=== PATIENT | female | born 1995 | race Caucasian/White ===

== ENCOUNTER 2019-06-30 17:30 | Outpatient (CLI) | payer MEDICAID, SELFPAY ==
[2019-06-30 17:45] VITALS: BMI 30.8
[2019-06-30 17:46] VITALS: BP 152/90; PULSE 97
[2019-06-30 17:50] VITALS: RESP 18; TEMP 36.8
[2019-06-30 18:01] VITALS: BP 154/97; PULSE 96
[2019-06-30 18:03] VITALS: BP 145/88; PULSE 86
[2019-06-30 18:35] VITALS: BP 145/88; PULSE 86; RESP 18; TEMP 36.8
== END 2019-06-30 18:20 | disposition home or self-care (01) ==
LOC: OPOB 17:38 → OBGYN 17:40 → OPOB 07-03 14:20
PROVIDERS: Visit Provider Family Medicine
DX: O26.899 Other specified pregnancy related conditions, unspecified trimester (principal); Z3A.00 Weeks of gestation of pregnancy not specified; Z91.81 History of falling
CPT/HCPCS: 59025; 99211

== ENCOUNTER 2019-07-05 22:19 | Inpatient (IN) | payer MEDICAID, SELFPAY ==
[2019-07-05] VITALS (13 sets, daily range): BP systolic 0–149; BP diastolic 0–93; PULSE 82–91; TEMP 36.8; BMI 30.8
[2019-07-05 21:36] LABS: Add Urine Microscopic? NO
[2019-07-05 21:38] LABS: Basophils % 0.2 %; Eosinophils % 0.3 %; Hematocrit 32.2 % (37.0-47.0); Hemoglobin 10.3 g/dL (11.5-15.3); Lymphocytes # 1.9 10^3/uL (0.8-4.8); Lymphocytes % 21.7 %; Mean Corpuscular Hemoglobin 26.4 pg (28.0-34.0); Mean Corpuscular Volume 82.6 fL (81-99); Mean Platelet Volume 11.8 fL (7.4-10.4); Monocytes # 0.8 10^3/uL (0.2-0.9); Neutrophils # 5.9 10^3/uL (1.8-7.7); Neutrophils % 68.2 %; Nucleated Red Blood Cells % 0 %; Platelet Count 216 10^3/cmm (130-400); Red Cell Distribution Width 13.6 % (12.1-15.1); White Blood Count 8.6 10^3/uL (4.0-10.0)
[2019-07-05 21:44] LABS: Bilirubin Urine Neg (NEGATIVE); Blood Urine Neg (Negative); Glucose Urine UA Norm (Normal); Ketones Urine 1+ (Negative); Leukocyte Esterase Urine Negative (Negative); Nitrate Urine Negative (Negative); Protein Urine Neg (Negative); Specific Gravity, Urine 1.005 (1.005-1.030); Urine Appearance Clear (CLEAR); Urine Color Straw (Yellow); Urobilinogen Urine Norm (Negative); pH Urine 7 (5-7)
[2019-07-05 21:53] LABS: Alanine Aminotransferase 11 U/L (0-33); Albumin Level 3.8 g/dL (3.5-5.2); Alkaline Phosphatase 119 IU/L (35-105); Aspartate Amino Transferase 18 U/L (0-32); Blood Urea Nitrogen 11 mg/dL (6-20); Calcium 10.2 mg/dL (8.5-10.5); Carbon Dioxide 23 mmol/L (22-29); Chloride 100 mmol/L (98-107); Globulin 2.4 g/dL (1.3-4.6); Glucose 85 mg/dL (65-115); Osmolality Calculated 279 mOsm/kg (285-295); Sodium 137 mmol/L (136-145); Total Bilirubin 0.3 mg/dL (0.15-1.2); Total Protein 6.2 g/dL (6.6-8.7); Uric Acid 6.3 mg/dL (2.4-5.7)
[2019-07-05 21:56] LABS: Urine Creatinine 38 mg/dL (28-217); Urine Protein Random 15 mg/dL
[2019-07-05 22:07] LABS: UPRO/UCREAT Ratio 0.39 mg/mg CR
[2019-07-05] MEDS: acetaminophen 325 mg Tablet 650 MG PO (22:52)
[2019-07-05] MEDS: lactated ringers 1,000 ML 999 ML IV (23:00)
[2019-07-05] MEDS: oxytocin 30 UNIT/500 ML BAG IV (23:25)
[2019-07-05] MEDS: dextrose 5%-lactated ringers 1,000 ML 125 ML IV (23:28)
[2019-07-06] VITALS (160 sets, daily range): BP systolic 0–158; BP diastolic 0–107; PULSE 60–110; RESP 16–18; TEMP 36.4–37.2; O2SAT 98–100
[2019-07-06] MEDS: alum-mag-hydroxide-sime 30 mL UDC PO (00:38)
--- NOTE | 2019-07-06 02:33 | PC.NURSE ---
RN escorts patient to [facility] for admission per physician order.
[2019-07-06] MEDS: dextrose 5%-lactated ringers 1,000 ML 125 ML IV ×2 (06:44→17:50)
[2019-07-06] MEDS: lactated ringers 1,000 ML 999 ML IV (08:32)
--- NOTE | 2019-07-06 08:50 | P.ANESUD_ITS ---
Pre-Anesthetic Update Pre-Anesthetic Assessment: Date of Surgery/Procedure: 07/06/19 Preop Loni gnosis: IUP Any changes to Pre-Anesthetic Assessment?: Yes Changes from Pre-Anesthetic Assessment: patients BP is elevated, states she had a fall last week and was told then that blood pressure was probably increased r/t anxiety. BP was elevated again on admission. patient has very small mouth opening Mp 3 Labs Last 48hrs: Laboratory Results - last 48 hr 07/05/19 07/05/19 07/05/19 21:23 21:23 21:26 WBC 8.6 RBC 3.90 L Hgb 10.3 L Hct 32.2 L MCV 82.6 MCH 26.4 L MCHC 32.0 RDW 13.6 Plt Count 216 MPV 11.8 H Neut % (Auto) 68.2 Lymph % (Auto) 21.7 [place] % (Auto) 9.0 Eos % (Auto) 0.3 Baso % (Auto) 0.2 Neut # (Auto) 5.9 Lymph # (Auto) 1.9 [place] # (Auto) 0.8 Eos # (Auto) 0.0 Baso # (Auto) 0.0 Nucleated RBC % (a uto) 0 Nucleated RBCs # 0.0 Sodium Potassium Chloride Carbon Dioxide Anion Gap BUN Creatinine GFR Calculation Glucose Calculated Osmolal ity Uric Acid Calcium Total Bilirubin AST ALT Alkaline Phosphata se Total Protein Albumin Globulin Urine Color Straw Urine Appearance Clear Urine pH 7 Ur Specific Gravit y 1.005 Urine Protein Neg Urine Glucose (UA) Norm Urine Ketones 1+ H Urine Blood Neg Urine Nitrate Negative Urine Bilirubin Neg Urine Urobilinogen Norm Ur Leukocyte Bita ase Negative U Random Total Pro tein 15 Urine Creatinine 38 Protein/Creatinin Ratio 0.39 07/05/19 21:26 WBC RBC Hgb Hct MCV MCH MCHC RDW Plt Count MPV Neut % (Auto) Lymph % (Auto) [place] % (Auto) Eos % (Auto) Baso % (Auto) Neut # (Auto) Lymph # (Auto) [place] # (Auto) Eos # (Auto) Baso # (Auto) Nucleated RBC % (a uto) Nucleated RBCs # Sodium 137 Potassium 4.0 Chloride 100 Carbon Dioxide 23 Anion Gap 18.0 BUN 11 Creatinine 0.6 GFR Calculation 125.0 Glucose 85 Calculated Osmolal ity 279 L Uric Acid 6.3 H Calcium 10.2 Total Bilirubin 0.3 AST 18 ALT 11 Alkaline Phosphata se 119 H Total Protein 6.2 L Albumin 3.8 Globulin 2.4 Urine Color Urine Appearance Urine pH Ur Specific Gravit y Urine Protein Urine Glucose (UA) Urine Ketones Urine Blood Urine Nitrate Urine Bilirubin Urine Urobilinogen Ur Leukocyte Bita ase U Random Total Pro tein Urine Creatinine Protein/Creatinin Ratio Vitals: Temperature 98.5 F 07/06/19 06:00 Temperature Source Oral 07/06/19 06:00 Pulse Rate 69 07/06/19 08:44 Respiratory Effort Non-Labored 07/05/19 23:14 Respiratory Depth Normal 07/05/19 23:14 Respiratory Patter n 07/05/19 23:14 Blood Pressure 137/93 07/06/19 08:44 Blood Pressure Lauren n 109 07/06/19 08:44 Pulse Oximetry 98 07/06/19 02:02 Oxygen Delivery Me thod 07/05/19 23:14 Exam: Pre-Anes Outpt Exam: alert, oriented x 3 and clear to auscultation bilaterally Cardiac Studies: No Data to Display
--- NOTE | 2019-07-06 09:29 | ANES.PROC ---
Anesthesia Procedures Procedure/Date: 07/06/19 labor epidural Epidural: Time Out Performed: Yes Consents Signed: Procedure Consent Consent: requested by attending/covering physician, from patient, risks and benefits reviewed and patient agrees to proceed Lumbar Level: L3-L4 Epidural position: sitting Epidural procedure: sterile prep of area, 1% lidocaine to numb the area, 18 g needle (L3-L4 interspace), neg for paresthesia, test dose given (5 cc), 0.2% Ropivacaine bolus ml (10 cc), placed PCEA, no systemic response, sterile dressing applied and 0.2% Ropiavacaine @ mls/hr (13 mls/hr) Additional Comments: DHARA at 8 cm, catheter threaded to 14 cm. vss See OBIX system. Patient denies feeling contractions at this time.
[2019-07-06] MEDS: ondansetron 2 mg/ML SDV 2 mL 4 MG IVP (10:08)
--- NOTE | 2019-07-06 13:27 | PC.NURSE ---
Dr. Mendoza at bedside at this time. SVE performed by Dr. Mendoza. loose 1 cm, AROM at 1308. Small to moderate amount of clear fluid noted. Pt placed in high fowlers position. Pt reports wanting her epidural turned down. Dr. Mendoza gave verbal order to turn epidural down to 10 mL/hr. Tamica Espinoza RN
--- NOTE | 2019-07-06 20:01 | P.PCNOB_ITS ---
Delivery Note: Date of delivery: July 06, 2019 Pre-delivery diagnoses: IUP at 37 weeks 4 days gestation Mild preeclampsia Post-delivery diagnoses: Same Procedure: Normal spontaneous vaginal delivery Op report anesthesia: Epidural Delivering Physician: Soo Mendoza MD Estimated blood loss (mL): 200 Findings: Vertex female infant weight 3415 g, Apgars 8 and 9 Pre-Delivery Course: The patient had routine care at [facility]. Her ROHIT 07/22/2019 by LMP and early u/s. There were no complications during the until a of admission. Patient called labor and delivery on the day of admission complaining of headache and elevated blood pressure. She was told to come in for evaluation in triage. Her blood pressure was found to be elevated at 157/90 repeat 151/94. She had home pressures mildly elevated as well. PIH labs were drawn and her AST ALT were within normal limits, platelets were within normal limits, protein creatinine ratio however was 0.39 supporting diagnosis of mild preeclampsia. Decision was made to keep patient and undergo induction. Her cervix was favorable at 1 cm 75% effaced soft and -3 station. She was started on Pitocin. She received an epidural for pain management. She had artificial rupture of membranes with clear fluid noted at approximately 6 hours prior to delivery. She was GBS negative. Delivery: The patient had a normal spontaneous vaginal delivery of a viable female infant weight 3415 g Apgars 8 and 9 over an intact perineum. The infant was suctioned at delivery and placed on the mother's chest. The cord was clamped and cut. The placenta was delivered grossly intact and normal to inspection. There were bilateral first-degree labial lacerations that were sutured for cosmesis. Mother and were doing well after delivery Coding Level of Care Code Acute Combination Presser for Meetag Brenda
[2019-07-06] MEDS: benzocaine-menthol 78 gm Canister 1 SPRAY TOPICAL (21:20)
[2019-07-06] MEDS: lanolin oint 7 gm 1 APPLIC TOPICAL (21:21)
[2019-07-07 01:15] VITALS: BP 133/88; PULSE 78; RESP 18; TEMP 36.4
[2019-07-07 03:30] VITALS: BP 104/61; PULSE 87; RESP 18
[2019-07-07 06:00] VITALS: BP 119/74; PULSE 80; RESP 14; TEMP 36.7; O2SAT 97
[2019-07-07 08:34] LABS: Hematocrit 28.5 % (37.0-47.0); Hemoglobin 8.9 g/dL (11.5-15.3); Mean Corpuscular HGB Conc 31.2 g/dL (30.0-36.0); Mean Corpuscular Hemoglobin 26.6 pg (28.0-34.0); Mean Corpuscular Volume 85.3 fL (81-99); Mean Platelet Volume 11.6 fL (7.4-10.4); Platelet Count 192 10^3/cmm (130-400); Red Blood Count 3.34 10^6/uL (4.1-5.3); Red Cell Distribution Width 13.7 % (12.1-15.1); White Blood Count 11.2 10^3/uL (4.0-10.0)
[2019-07-07] MEDS: docusate sodium 100 mg Capsule PO ×2 (09:19→17:56)
[2019-07-07] MEDS: prenatal vitamin Capsule 1 CAP PO (09:19)
[2019-07-07 09:30] VITALS: BP 136/87; PULSE 103; RESP 16; TEMP 36.4
--- NOTE | 2019-07-07 13:33 | PM.OBGYDC ---
Discharge Providers SMOKE CONTROL SUPERVISOR Date of Admission: 07/05/19 22:19 Date of Discharge: 07/07/19 Attending Provider at Admission: Soo Mendoza MD Attending Provider at Discharge: Soo Mendoza MD Diagnoses at Discharge Discharge Diagnosis (1) (normal spontaneous vaginal delivery): Status: Acute (2) Mild preeclampsia: Status: Acute Reason for Visit Reason for Visit: Reason For Visit: high bp Hospital Course Hospital Course: This is a 24-year-old G1 now P1 who presented to labor and delivery complaining of headache and elevated blood pressure. She was found to have mildly elevated blood pressures and a urine protein creatinine ratio of 0.39 so she was induced for mild preeclampsia. She had a normal spontaneous vaginal delivery of a viable female infant. Mother and infant did well after delivery. On day #1 she was ambulating, tolerating a regular diet, had normal blood pressures good urine output and was comfortable with discharge home Information Peripartum Data: Infant Delivery Method: Vaginal Physical Exam HENMT: COMMON NORMALS: normocephalic and head/scalp atraumatic HEAD & SCALP: normocephalic and atraumatic Eye: COMMON NORMALS: PERRL and EOMs intact bilaterally PUPIL: Yes PERRL Resp: COMMON NORMALS: normal respiratory effort Cardio: RATE: tachycardic HEART SOUNDS: no murmurs GI: COMMON NORMALS: normal to inspection, nondistended, normoactive bowel sounds, soft to palpation and non-tender PALPATION: Yes soft Extremity: GENERAL: No calf tenderness and Yes edema Urinary Catheter Management^: Schultz Latex: Cath Placed During This Visit: yes, but has since been removed by the nurse Reason for Continuing Indwelling Catheter: Other Urinary Catheter Date of Insertion: 07/06/19 Urinary Catheter Time of Insertion: 09:42 Date Urinary Catheter Removed: 07/06/19 Time Urinary Catheter Discontinued: 18:20 Discharge Data Data Completed and Pending: Labs from last 24 hours 07/07/19 07:50 WBC 11.2 H RBC 3.34 L Hgb 8.9 L Hct 28.5 L MCV 85.3 MCH 26.6 L MCHC 31.2 RDW 13.7 Plt Count 192 MPV 11.6 H Vitals: Last Vital Signs Temp 97.5 F L 07/07/19 09:30 Pulse 103 H 07/07/19 09:30 Resp 16 07/07/19 09:30 BP 136/87 07/07/19 09:30 Pulse Ox 97 07/07/19 06:00 Discharge Plan Discharge Patient Disposition: Home, Self-Care Condition: Stable Prescriptions: Continued ondansetron HCl [Zofran] 4 mg Tablet 4 mg PO Q6H PRN (Reason: Nausea) RF: 0 Vitamin 27 mg iron- 0.8 mg Tablet 1 tab PO DAILY RF: 0 Discharge Orders: Discharge Order (Routine); Ordered 07/07/19 Ordered By: Soo Mendoza Referrals: Soo Mendoza MD [Physician] - 08/03/19 1:00 pm Patient Instructions: Vaginal Delivery (DC), OB Discharge Report, OB Anesthesia Instructions, OB Food/Drug Interaction Guide, OB Home Care, OB Proud Parent Packet Discharge Attestations SMOKE CONTROL SUPERVISOR Time Spent in Discharge Care*: less than 30 min Coding Level of Care Code Acute Fur Trimming Machine Operator for Chg Fwd Diagnoses (normal spontaneous vaginal delivery) O80 Mild preeclampsia O14.00
[2019-07-07 15:00] VITALS: BP 144/78; PULSE 101; RESP 16; TEMP 36.6
--- NOTE | 2019-07-07 21:20 | PC.NURSE ---
Vitals reported to this nurse to chart for ALEXIA ISAAC. GORDON RN
== END 2019-07-07 21:10 | disposition home or self-care (01) | DRG 807 ==
LOC: OPOB 07-06 09:25 → OBGYN 07-06 09:25
PROVIDERS: Admitting Provider Family Medicine; Visit Provider Family Medicine
DX: O14.04 Mild to moderate pre-eclampsia, complicating childbirth (principal); Z37.0 Single live birth; Z3A.37 37 weeks gestation of pregnancy; O70.0 First degree perineal laceration during delivery
CPT/HCPCS: 12345; 36415; 51702; 59409; 80053; 81003; 82570; 84156; 84550; 85025; 85027; 96375; 99211; J2405; J2795

== ENCOUNTER 2020-06-17 04:40 | Emergency (ER) | payer BC, MEDICAID, SELFPAY ==
[2020-06-17 04:58] VITALS: BP 134/95; PULSE 81; RESP 16; TEMP 36.8; O2SAT 97; BMI 27.4
[2020-06-17 05:03] VITALS: BP 125/74; PULSE 78; RESP 16; O2SAT 100
[2020-06-17] MEDS: sodium chloride 0.9% 1,000 ML 999 ML IV (05:31)
[2020-06-17] MEDS: ondansetron 2 mg/ML SDV 2 mL 4 MG IVP (05:31)
[2020-06-17] MEDS: ketorolac 30 mg/mL INJ IVP (05:32)
[2020-06-17 05:33] VITALS: BP 125/78; PULSE 74; RESP 18; O2SAT 96
[2020-06-17 05:43] LABS: Basophils % 0.2 %; Eosinophils % 0.3 %; Hematocrit 41.6 % (37.0-47.0); Hemoglobin 13.8 g/dL (11.5-15.3); Lymphocytes # 1.2 10^3/uL (0.8-4.8); Mean Corpuscular HGB Conc 33.2 g/dL (30.0-36.0); Mean Corpuscular Hemoglobin 27.7 pg (28.0-34.0); Mean Corpuscular Volume 83.4 fL (81-99); Mean Platelet Volume 9.6 fL (7.4-10.4); Monocytes # 1.3 10^3/uL (0.2-0.9); Neutrophils # 3.51 10^3/uL (1.8-7.7); Neutrophils % 57.8 %; Nucleated Red Blood Cells % 0 %; Platelet Count 259 10^3/cmm (130-400); Red Blood Count 4.99 10^6/uL (4.1-5.3); Red Cell Distribution Width 12.7 % (12.1-15.1); White Blood Count 6.1 10^3/uL (4.0-10.0)
--- NOTE | 2020-06-17 06:00 | ED_ITS ---
Documented by User: John Watts DO 06/17/20 06:10 HPI - Nausea/Vomiting/Diarrhea General: Chief complaint: Nausea/Vomiting/Diarrhea Stated complaint: back pain, diarhea Time Seen by Provider: 06/17/20 04:57 History of Present Illness: HPI Narrative: 24-year-old female presenting with back pain, and diarrhea since Wednesday. She states she believes she had a fever yesterday. No blood in the stool. No vomiting. She has abdominal cramping. She does not believe she is , she is on control and took a test at home. She notes that her is sick with sinuses , and her daughter has a cold . They do not have GI symptoms. She denies any cough or congestion. MD elicited complaint: nausea, diarrhea and abdominal pain Pertinent past history: other Onset (ago): day(s) Description of vomiting: none Description of diarrhea: watery Associated nausea: Yes Associated abdominal pain: Yes Location of pain: Periumbilical and Suprapubic Radiation: diffuse Severity: moderate Quality: cramping, stabbing and aching Exacerbating factors: movement Relieving factors: none Associated symtoms: Reports nausea; Denies altered mental status, change in vision, chest pain, cough or headache(s) Review of Systems Const: Reports: fever(s); Denies: chills or body aches Eyes: Denies: change in vision or blurry vision Card: Denies: chest pain Resp: Denies: dyspnea, productive cough or non-productive cough GI: Reports: abdominal pain, nausea and GI cramping; Denies: vomiting Neuro: Denies: headache(s) [facility] ED PFSH: Social History (Updated 05/10/20 @ 10:54 by Melisa Bledsoe LPN, RT) Smoking and tobacco status: never smoked Second hand smoke exposure: No Alcohol intake: never Caregiver/support person: Yes Lives independently: Yes Household members: spouse and children Marital status: Current occupational status: employed Current occupation: [employer] History of recent travel: No Current gender identity: Female Physical Exam Const: EXAM LIMITATIONS: no altered mental status GENERAL APPEARANCE: well developed ORIENTATION/CONSCIOUSNESS: Yes oriented to person, Yes oriented to place and Yes oriented to time HENMT: COMMON NORMALS: normocephalic, external ears normal and Normal external nose present HEAD & SCALP: normocephalic FACE & SINUS: normal facial exam NOSE: Normal external nose present and No nasal discharge present EXTERNAL EAR: Yes external ears normal Eye: COMMON NORMALS: Equal, round and reactive pupils present, EOMs intact bilaterally and conjunctivae normal EYELID: eyelids normal CONJUNCTIVA: Yes conjunctivae normal PUPIL: Yes Equal, round and reactive pupils present Neck/C-Spine: GENERAL: No tracheal deviation Chest: COMMONS NORMALS: normal inspection of the chest CHEST: No tenderness Resp: COMMON NORMALS: clear to auscultation bilaterally EFFORT & INSPECTION: No tachypneic, No respiratory distress, No retractions, No uses accessory muscles and No tracheal deviation AUSCULTATION: clear to auscultation bilaterally, no rhonchi, no wheezes and lung sounds not diminished Cardio: COMMON NORMALS: regular rate and regular rhythm RATE: regular rate RHYTHM: regular rhythm HEART SOUNDS: no murmurs PERIPHERAL PULSES: radial pulses present GI: INSPECTION: No abdominal distension AUSCULTATION: No Hyperactive bowel sounds present and No Hypoactive bowel sounds present PALPATION: Yes Tenderness to palpation present (GI) (Suprapubic), No Guarding due to palpation present (GI) and No Rigid due to palpation PERCUSSION: no dullness to percussion and no tympanic to percussion : BLADDER/KIDNEY EXAM: Yes CVA tenderness (mild) bilateral Back/Pelvis: GENERAL BACK: Yes CVA tenderness (mild) Neuro: SENSORIUM/ORIENTATION: Yes oriented to person, Yes oriented to place and Yes oriented to time Psych: COMMON NORMALS: mental status grossly normal Skin: COMMON NORMALS: no rashes or lesions noted GENERAL SKIN EXAM: no rashes or lesions noted Course Vital Signs: Vital signs: Vital Signs Temperature 98.2 F 06/17/20 04:58 Pulse Rate 90 06/17/20 08:07 Respiratory Rate 16 06/17/20 08:07 Blood Pressure 120/72 06/17/20 08:07 Pulse Oximetry 97 06/17/20 08:07 MDM - Nausea/Vomiting/Diarrhea MDM Narrative: Medical decision making narrative: 24-year-old female with back pain, abdominal cramping, and diarrhea. There is questionable history of fever yesterday. Sick contacts in the family have upper respiratory symptoms. White blood cell count is 6.1. Other labs are pending. Patient will be checked out to Dr. Sanon at shift change. Lab Data: Labs: Lab Results 06/17/20 06/17/20 06/17/20 Range/Units 05:21 05:30 05:30 WBC 6.1 (4.0-10.0) 10^3/ uL RBC 4.99 (4.1-5.3) 10^6/u L Hgb 13.8 (11.5-15.3) g/dL Hct 41.6 (37.0-47.0) % MCV 83.4 (81-99) fL MCH 27.7 L (28.0-34.0) pg MCHC 33.2 (30.0-36.0) g/dL RDW 12.7 (12.1-15.1) % Plt Count 259 (130-400) 10^3/c mm MPV 9.6 (7.4-10.4) fL Neut % (Auto) 57.8 % Lymph % (Auto) 20.0 % [place] % (Auto) 21.0 % Eos % (Auto) 0.3 % Baso % (Auto) 0.2 % Neut # (Auto) 3.51 (1.8-7.7) 10^3/u L Lymph # (Auto) 1.2 (0.8-4.8) 10^3/u L [place] # (Auto) 1.3 H (0.2-0.9) 10^3/u L Eos # (Auto) 0.0 (0.0-0.8) 10^3/u L Baso # (Auto) 0.0 (0.0-0.1) 10^3/u L Nucleated RBC % (a uto) 0 % Nucleated RBCs # 0.0 /100WBC Sodium 134 L (136-145) mmol/L Potassium 3.2 L (3.5-5.1) mmol/L Chloride 100 (98-107) mmol/L Carbon Dioxide 21 L (22-29) mmol/L Anion Gap 16.2 (5-19) BUN 16 (6-20) mg/dL Creatinine 0.6 (0.5-0.9) mg/dL GFR Calculation 125.0 (90-130) mL/min Glucose 86 (65-115) mg/dL Calculated Osmolal ity 278 L (285-295) mOsm/k g Calcium 9.0 (8.5-10.5) mg/dL Total Bilirubin 0.5 (0.15-1.2) mg/dL AST 22 (0-32) U/L ALT 23 (0-33) U/L Alkaline Phosphata se 90 (35-105) IU/L C-Reactive Protein 68.0 H (0.0-4.9) mg/L Total Protein 7.0 (6.6-8.7) g/dL Albumin 4.1 (3.5-5.2) g/dL Globulin 2.9 (1.3-4.6) g/dL Lipase 25 (13-60) U/L HCG, Qual (Negative) Urine Color Yellow (Yellow) Urine Appearance Clear (CLEAR) Urine pH 5 (5-7) Ur Specific Gravit y 1.020 (1.005-1.030) Urine Protein 1+ H (Negative) Urine Glucose (UA) Norm (Normal) Urine Ketones 2+ H (Negative) Urine Blood Neg (Negative) Urine Nitrate Negative (Negative) Urine Bilirubin 1+ H (Negative) Urine Urobilinogen Norm (Negative) mg/dL Ur Leukocyte Bita ase Negative (Negative) Urine RBC Rare (0-2) /hpf Urine WBC 0-4 H (0-5) /hpf Ur Squamous Epith Cells 5-10 H (0-5) /hpf Amorphous Sediment Not Reportable Urine Bacteria 1+ H (NONE) /hpf Urine Mucus 1+ /hpf SARS-CoV-2 Ag (Rap id) (Negative) 06/17/20 06/17/20 Range/Units 05:30 05:36 WBC (4.0-10.0) 10^3/ uL RBC (4.1-5.3) 10^6/u L Hgb (11.5-15.3) g/dL Hct (37.0-47.0) % MCV (81-99) fL MCH (28.0-34.0) pg MCHC (30.0-36.0) g/dL RDW (12.1-15.1) % Plt Count (130-400) 10^3/c mm MPV (7.4-10.4) fL Neut % (Auto) % Lymph % (Auto) % [place] % (Auto) % Eos % (Auto) % Baso % (Auto) % Neut # (Auto) (1.8-7.7) 10^3/u L Lymph # (Auto) (0.8-4.8) 10^3/u L [place] # (Auto) (0.2-0.9) 10^3/u L Eos # (Auto) (0.0-0.8) 10^3/u L Baso # (Auto) (0.0-0.1) 10^3/u L Nucleated RBC % (a uto) % Nucleated RBCs # /100WBC Sodium (136-145) mmol/L Potassium (3.5-5.1) mmol/L Chloride (98-107) mmol/L Carbon Dioxide (22-29) mmol/L Anion Gap (5-19) BUN (6-20) mg/dL Creatinine (0.5-0.9) mg/dL GFR Calculation (90-130) mL/min Glucose (65-115) mg/dL Calculated Osmolal ity (285-295) mOsm/k g Calcium (8.5-10.5) mg/dL Total Bilirubin (0.15-1.2) mg/dL AST (0-32) U/L ALT (0-33) U/L Alkaline Phosphata se (35-105) IU/L C-Reactive Protein (0.0-4.9) mg/L Total Protein (6.6-8.7) g/dL Albumin (3.5-5.2) g/dL Globulin (1.3-4.6) g/dL Lipase (13-60) U/L HCG, Qual Negative (Negative) Urine Color (Yellow) Urine Appearance (CLEAR) Urine pH (5-7) Ur Specific Gravit y (1.005-1.030) Urine Protein (Negative) Urine Glucose (UA) (Normal) Urine Ketones (Negative) Urine Blood (Negative) Urine Nitrate (Negative) Urine Bilirubin (Negative) Urine Urobilinogen (Negative) mg/dL Ur Leukocyte Bita ase (Negative) Urine RBC (0-2) /hpf Urine WBC (0-5) /hpf Ur Squamous Epith Cells (0-5) /hpf Amorphous Sediment Urine Bacteria (NONE) /hpf Urine Mucus /hpf SARS-CoV-2 Ag (Rap id) Negative (Negative) Discharge Plan Discharge Patient Disposition: Home Clinical Impression: Mesenteric lymphadenitis Condition: Stable Prescriptions: New Zofran 4 mg tablet 4 mg PO Q6H PRN (Reason: nausea and vomiting) Qty: 15 RF: 0 Discharge Orders: Discharge ED (Routine); Ordered 06/17/20 Ordered By: Gold Sanon Discharge Diet: Clear Liquid Discharge Activity: Resume usual activity Patient Instructions: Opioid Safety Activity Restrictions/Additional Instructions: Clear liquid diet for 24 hours then advance as tolerated Sign Out Sign Out Data: Patient Sign Out occurred on 06/17/20 at 06:29. Patient's care was discussed, and care was transferred from to Gold Sanon DO. Coding Level of Care Code ED Graduate Advisor for Chg Fwd Exam Comprehensive Documented by User: Gold Sanon DO 06/21/20 14:20 HPI - Nausea/Vomiting/Diarrhea General: Chief complaint: Nausea/Vomiting/Diarrhea Stated complaint: back pain, diarhea Time Seen by Provider: 06/17/20 04:57 PFSH ED PFSH: Social History (Updated 05/10/20 @ 10:54 by Melisa Bledsoe LPN, RT) Smoking and tobacco status: never smoked Second hand smoke exposure: No Alcohol intake: never Caregiver/support person: Yes Lives independently: Yes Household members: spouse and children Marital status: Current occupational status: employed Current occupation: [employer] History of recent travel: No Current gender identity: Female Course Vital Signs: Vital signs: Vital Signs Temperature 98.2 F 06/17/20 04:58 Pulse Rate 90 06/17/20 08:07 Respiratory Rate 16 06/17/20 08:07 Blood Pressure 120/72 06/17/20 08:07 Pulse Oximetry 97 06/17/20 08:07 MDM - Nausea/Vomiting/Diarrhea MDM Narrative: Medical decision making narrative: Reviewed history reviewed patient examined. CT shows mesenteric lymphadenitis on exam patient is not characteristic of appendicitis we will go and discharge her home with ondansetron clear liquid diet advance as tolerated. Lab Data: Labs: Lab Results 06/17/20 06/17/20 06/17/20 Range/Units 05:21 05:30 05:30 WBC 6.1 (4.0-10.0) 10^3/ uL RBC 4.99 (4.1-5.3) 10^6/u L Hgb 13.8 (11.5-15.3) g/dL Hct 41.6 (37.0-47.0) % MCV 83.4 (81-99) fL MCH 27.7 L (28.0-34.0) pg MCHC 33.2 (30.0-36.0) g/dL RDW 12.7 (12.1-15.1) % Plt Count 259 (130-400) 10^3/c mm MPV 9.6 (7.4-10.4) fL Neut % (Auto) 57.8 % Lymph % (Auto) 20.0 % [place] % (Auto) 21.0 % Eos % (Auto) 0.3 % Baso % (Auto) 0.2 % Neut # (Auto) 3.51 (1.8-7.7) 10^3/u L Lymph # (Auto) 1.2 (0.8-4.8) 10^3/u L [place] # (Auto) 1.3 H (0.2-0.9) 10^3/u L Eos # (Auto) 0.0 (0.0-0.8) 10^3/u L Baso # (Auto) 0.0 (0.0-0.1) 10^3/u L Nucleated RBC % (a uto) 0 % Nucleated RBCs # 0.0 /100WBC Sodium 134 L (136-145) mmol/L Potassium 3.2 L (3.5-5.1) mmol/L Chloride 100 (98-107) mmol/L Carbon Dioxide 21 L (22-29) mmol/L Anion Gap 16.2 (5-19) BUN 16 (6-20) mg/dL Creatinine 0.6 (0.5-0.9) mg/dL GFR Calculation 125.0 (90-130) mL/min Glucose 86 (65-115) mg/dL Calculated Osmolal ity 278 L (285-295) mOsm/k g Calcium 9.0 (8.5-10.5) mg/dL Total Bilirubin 0.5 (0.15-1.2) mg/dL AST 22 (0-32) U/L ALT 23 (0-33) U/L Alkaline Phosphata se 90 (35-105) IU/L C-Reactive Protein 68.0 H (0.0-4.9) mg/L Total Protein 7.0 (6.6-8.7) g/dL Albumin 4.1 (3.5-5.2) g/dL Globulin 2.9 (1.3-4.6) g/dL Lipase 25 (13-60) U/L HCG, Qual (Negative) Urine Color Yellow (Yellow) Urine Appearance Clear (CLEAR) Urine pH 5 (5-7) Ur Specific Gravit y 1.020 (1.005-1.030) Urine Protein 1+ H (Negative) Urine Glucose (UA) Norm (Normal) Urine Ketones 2+ H (Negative) Urine Blood Neg (Negative) Urine Nitrate Negative (Negative) Urine Bilirubin 1+ H (Negative) Urine Urobilinogen Norm (Negative) mg/dL Ur Leukocyte Bita ase Negative (Negative) Urine RBC Rare (0-2) /hpf Urine WBC 0-4 H (0-5) /hpf Ur Squamous Epith Cells 5-10 H (0-5) /hpf Amorphous Sediment Not Reportable Urine Bacteria 1+ H (NONE) /hpf Urine Mucus 1+ /hpf SARS-CoV-2 Ag (Rap id) (Negative) 06/17/20 06/17/20 Range/Units 05:30 05:36 WBC (4.0-10.0) 10^3/ uL RBC (4.1-5.3) 10^6/u L Hgb (11.5-15.3) g/dL Hct (37.0-47.0) % MCV (81-99) fL MCH (28.0-34.0) pg MCHC (30.0-36.0) g/dL RDW (12.1-15.1) % Plt Count (130-400) 10^3/c mm MPV (7.4-10.4) fL Neut % (Auto) % Lymph % (Auto) % [place] % (Auto) % Eos % (Auto) % Baso % (Auto) % Neut # (Auto) (1.8-7.7) 10^3/u L Lymph # (Auto) (0.8-4.8) 10^3/u L [place] # (Auto) (0.2-0.9) 10^3/u L Eos # (Auto) (0.0-0.8) 10^3/u L Baso # (Auto) (0.0-0.1) 10^3/u L Nucleated RBC % (a uto) % Nucleated RBCs # /100WBC Sodium (136-145) mmol/L Potassium (3.5-5.1) mmol/L Chloride (98-107) mmol/L Carbon Dioxide (22-29) mmol/L Anion Gap (5-19) BUN (6-20) mg/dL Creatinine (0.5-0.9) mg/dL GFR Calculation (90-130) mL/min Glucose (65-115) mg/dL Calculated Osmolal ity (285-295) mOsm/k g Calcium (8.5-10.5) mg/dL Total Bilirubin (0.15-1.2) mg/dL AST (0-32) U/L ALT (0-33) U/L Alkaline Phosphata se (35-105) IU/L C-Reactive Protein (0.0-4.9) mg/L Total Protein (6.6-8.7) g/dL Albumin (3.5-5.2) g/dL Globulin (1.3-4.6) g/dL Lipase (13-60) U/L HCG, Qual Negative (Negative) Urine Color (Yellow) Urine Appearance (CLEAR) Urine pH (5-7) Ur Specific Gravit y (1.005-1.030) Urine Protein (Negative) Urine Glucose (UA) (Normal) Urine Ketones (Negative) Urine Blood (Negative) Urine Nitrate (Negative) Urine Bilirubin (Negative) Urine Urobilinogen (Negative) mg/dL Ur Leukocyte Bita ase (Negative) Urine RBC (0-2) /hpf Urine WBC (0-5) /hpf Ur Squamous Epith Cells (0-5) /hpf Amorphous Sediment Urine Bacteria (NONE) /hpf Urine Mucus /hpf SARS-CoV-2 Ag (Rap id) Negative (Negative) Discharge Plan Discharge Patient Disposition: Home Clinical Impression: Mesenteric lymphadenitis Condition: Stable Prescriptions: New Zofran 4 mg tablet 4 mg PO Q6H PRN (Reason: nausea and vomiting) Qty: 15 RF: 0 Discharge Orders: Discharge ED (Routine); Ordered 06/17/20 Ordered By: Gold Sanon Discharge Diet: Clear Liquid Discharge Activity: Resume usual activity Patient Instructions: Opioid Safety Activity Restrictions/Additional Instructions: Clear liquid diet for 24 hours then advance as tolerated Sign Out Sign Out Data: Patient Sign Out occurred on 06/17/20 at 06:29. Patient's care was discussed, and care was transferred from to Gold Sanon DO. Coding Level of Care Code ED Graduate Advisor for Meetag Fwd Exam Comprehensive
[2020-06-17 06:27] VITALS: BP 104/67; PULSE 74; RESP 14; O2SAT 100
[2020-06-17 06:37] LABS: Alanine Aminotransferase 23 U/L (0-33); Albumin Level 4.1 g/dL (3.5-5.2); Alkaline Phosphatase 90 IU/L (35-105); Anion Gap 16.2 (5-19); Aspartate Amino Transferase 22 U/L (0-32); Blood Urea Nitrogen 16 mg/dL (6-20); Carbon Dioxide 21 mmol/L (22-29); Chloride 100 mmol/L (98-107); Globulin 2.9 g/dL (1.3-4.6); Glucose 86 mg/dL (65-115); Lipase 25 U/L (13-60); Osmolality Calculated 278 mOsm/kg (285-295); Potassium 3.2 mmol/L (3.5-5.1); Sodium 134 mmol/L (136-145); Total Bilirubin 0.5 mg/dL (0.15-1.2)
[2020-06-17 06:38] LABS: SARS Covid-2 Antigen Negative (Negative)
[2020-06-17 06:48] LABS: HCG, Serum Qual Negative (Negative)
[2020-06-17 06:53] LABS: Bilirubin Urine 1+ (Negative); Blood Urine Neg (Negative); Glucose Urine UA Norm (Normal); Ketones Urine 2+ (Negative); Leukocyte Esterase Urine Negative (Negative); Nitrate Urine Negative (Negative); Protein Urine 1+ (Negative); Urine Appearance Clear (CLEAR); Urine Color Yellow (Yellow); Urobilinogen Urine Norm (Negative); pH Urine 5 (5-7)
[2020-06-17 06:54] LABS: Add Urine Microscopic? YES
[2020-06-17 06:55] LABS: Bacteria Urine 1+ /hpf; Mucus Urine 1+ /hpf; RBC Urine RARE /hpf (0-2); WBC Urine 0-4 /hpf (0-5)
[2020-06-17 06:56] LABS: Add Urine Culture? No
--- NOTE | 2020-06-17 07:01 | CT_ITS ---
WS: [id number] CT ABDOMEN AND PELVIS WITH CONTRAST HISTORY: Abdominal pain with diarrhea for 2 days. TECHNIQUE: Imaging performed of the abdomen and pelvis with IV contrast. Single phase imaging of the abdomen. Coronal and sagittal reformats are submitted. All CT scans at [facility] use at least one of these dose optimization techniques: automated exposure control; mA and/or kV adjustment per patient size (includes targeted exams where dose is matched to clinical indication); or iterativ e reconstruction. IV CONTRAST: Omnipaque 300; 95 mL IV. Oral contrast: No DLP: 820.82 mGy.cm COMPARISON: 02/07/2012 Lower thorax: Lung bases are clear. Heart is normal size. No hiatal hernia. Liver/biliary system: Normal size with no intrahepatic dilatation. Gallbladder: Normal. No gallstones or wall thickening. No pericholecystic fluid. Pancreas: Normal. Spleen: Normal. Adrenal glands: Normal. Right kidney: Normal. Left kidney: Normal. Aorta: Normal. Lymphadenopathy: There are numerous small subcentimeter mesenteric and RIGHT lower quadrant lymph nod es. Majority of the lymph nodes measure 4 to 6 mm in short axis diameter. Free fluid: Tiny amount of free fluid in the cul-de-sac and RIGHT lower quadrant. GI tract: Appendix is normal. No obstructive pattern. No wall thickening. Abdominal wall: Unremarkable abdominal wall. No hernia. Pelvis: Small amount of physiologic free fluid in the pelvis. Uterus is anteverted normal caliber. Ov kaitlin are normal size and contain small follicles. Bones: Mild LEFT convex curvature the lumbar spine. CT/CT abdomen pelvis w con* [id number] IMPRESSION: 1. Normal appendix. 2. Numerous small mesenteric and RIGHT lower quadrant lymph nodes. Most likely mesenteric adenitis.
[2020-06-17 07:10] VITALS: BP 142/62; PULSE 90; RESP 16; O2SAT 98
--- NOTE | 2020-06-17 07:12 | PC.NURSE ---
patient denied any abdominal pain at this time.
[2020-06-17] MEDS: iohexol 300 mg/mL 100 mL Btl IV (07:23)
[2020-06-17 08:07] VITALS: BP 120/72; PULSE 90; RESP 16; O2SAT 97
== END 2020-06-17 08:09 | disposition home or self-care (01) ==
PROVIDERS: Emergency Medicine; Emergency Provider Family Medicine
DX: I88.0 Nonspecific mesenteric lymphadenitis (principal)
CPT/HCPCS: 74177; 80053; 81001; 83690; 84703; 85025; 86140; 87426; 96361; 96374; 96375; 99284; J1885; J2405; J7030; Q9967

== ENCOUNTER 2021-09-16 12:20 | Outpatient (CLI) | payer BC, MEDICAID, SELFPAY ==
--- NOTE | 2021-09-16 | US_ITS ---
WS: [id number] OB ultrasound, 09/16/2021 Clinical Data: SUPERVISION OF NORMAL MULTIGRAVIDA SECOND TRIMESTE Comparison: None. Findings: There is a single intrauterine in the breech presentation. The placenta is Anterior and gra de 0. There is a normal amount of amnionic fluid. The heart rate is 148 beats per minute. Measurements of growth and development: BPD: 4.7 cm 20 weeks 2 days HC: 18.0 cm 20 weeks 4 days AC: 15.8 cm 21 weeks 0 days FL: 3.48 cm 21 weeks 0 days The estimated weight is 384 g or approximately 14 ounces. The estimated gestational age is 20 weeks 5 days with an ROHIT of approximately 01/29/2022. anatomy show a normal stomach, kidneys, bladder, cord insertion, three-vessel cord, entire spin e, four-chamber heart, lateral cerebral ventricles, cerebellum and cisterna magna. US/US OB >= 14 weeks fetus [id number] Impression: 1. Single intrauterine in breech presentation. 2. Estimated gestational age 20 weeks 5 days with an ROHIT of 01/29/2022.. 3. heart rate 148 beats per minute.
== END 2021-09-16 12:21 | disposition home or self-care (01) ==
LOC: RADOUTREAD 12:25
PROVIDERS: Visit Provider Family Medicine
DX: Z34.02 Encounter for supervision of normal first pregnancy, second trimester (principal); Z3A.20 20 weeks gestation of pregnancy
CPT/HCPCS: 76805

== ENCOUNTER 2022-01-21 20:15 | Inpatient (IN) | payer OTHER, BC, MEDICAID, SELFPAY ==
[2022-01-21] VITALS (11 sets, daily range): BP systolic 111–125; BP diastolic 59–79; PULSE 66–93; RESP 17–18; BMI 32.5
[2022-01-21 21:11] LABS: Basophils % 0.2 %; Eosinophils % 0.4 %; Hematocrit 30.6 % (37.0-47.0); Hemoglobin 9.7 g/dL (11.5-15.3); Lymphocytes # 1.6 10^3/uL (0.8-4.8); Lymphocytes % 18.7 %; Mean Corpuscular HGB Conc 31.7 g/dL (30.0-36.0); Mean Corpuscular Hemoglobin 25.4 pg (28.0-34.0); Mean Corpuscular Volume 80.1 fl (81-99); Monocytes # 0.9 10^3/uL (0.2-0.9); Monocytes % 10.5 %; Neutrophils # 5.84 10^3/uL (1.8-7.7); Neutrophils % 69.5 %; Nucleated Red Blood Cells % 0 %; Platelet Count 266 10^3/cmm (130-400); Red Blood Count 3.82 10^6/uL (4.1-5.3); Red Cell Distribution Width 13.2 % (12.1-15.1); White Blood Count 8.4 10^3/uL (4.0-10.0)
[2022-01-21 21:12] LABS: Add Urine Microscopic? NO; Charge for UA Resulting for Rev
[2022-01-21] MEDS: dextrose 5%-lactated ringers 1,000 ML 125 ML IV (21:22)
[2022-01-21] MEDS: miSOPROStol 100 mcg tablet 25 MCG VAGINAL (21:23)
[2022-01-21 21:24] LABS: Bilirubin Urine Neg (Negative); Blood Urine Neg (Negative); Glucose Urine UA Norm (Normal); Ketones Urine Negative (Negative); Leukocyte Esterase Urine Negative (Negative); Nitrate Urine Negative (Negative); Protein Urine Neg (Negative); Specific Gravity, Urine 1.015 (1.005-1.030); Urine Appearance Clear (CLEAR); Urine Color Yellow (Yellow); Urobilinogen Urine Norm (Negative); pH Urine 6 (5-7)
[2022-01-21 21:30] LABS: Urine Creatinine 37 mg/dL (28-217); Urine Protein Random 6 mg/dL
[2022-01-21 21:32] LABS: Alanine Aminotransferase 8 U/L (0-33); Albumin Level 3.1 g/dL (3.5-5.2); Alkaline Phosphatase 121 U/L (35-105); Anion Gap 14.8 (5-19); Aspartate Amino Transferase 12 U/L (0-32); Blood Urea Nitrogen 10 mg/dL (6-20); Calcium 8.6 mg/dL (8.5-10.5); Carbon Dioxide 24 mmol/L (22-29); Chloride 100 mmol/L (98-107); Globulin 2.8 g/dL (1.3-4.6); Glomerular Filtration Rate 151.6 mL/min (90-130); Glucose 94 mg/dL (65-115); Osmolality Calculated 279 mOsm/kg (285-295); Potassium 3.8 mmol/L (3.5-5.1); Sodium 135 mmol/L (136-145); Total Bilirubin 0.2 mg/dL (0.15-1.2); Total Protein 5.9 g/dL (6.6-8.7); Uric Acid 5.9 mg/dL (2.4-5.7)
[2022-01-21 21:45] LABS: UPRO/UCREAT Ratio 0.16 mg/mg CR
[2022-01-22] VITALS (57 sets, daily range): BP systolic 94–151; BP diastolic 55–91; PULSE 62–107; RESP 16–18; TEMP 36.2–36.7; O2SAT 98–100
[2022-01-22] MEDS: miSOPROStol 100 mcg tablet 25 MCG VAGINAL (00:52)
[2022-01-22] MEDS: lactated ringers 1,000 ML 999 ML IV (04:30)
--- NOTE | 2022-01-22 05:31 | ANES.PREANE2 ---
Pre-Anesthetic Assessment Height/Weight: Height 1.68 m Weight 202 kg Temp Pulse Resp BP Pulse Ox O2 Del Method 97.1 F L 79 18 124/82 100 01/22/22 02:23 01/22/22 05:27 01/22/22 05:23 01/22/22 05:17 01/22/22 05:27 01/21/22 20:15 Preop Diagnosis: IUP Familial anesthetic complications: none Was Beta Rashmi taken within 24 hours: N/A Exam alert and oriented x 3 Airway Submandibular: within normal limits Cervical ROM: within normal limits Mallampati: Class II Dentition: full History/ROS No significant history except as noted Pulmonary None reported CV/HEM None reported None reported Hepatic None reported GI None reported Metabolic None reported Musc/skel None reported Neuropsych None reported Anesthetic Plan ASA status: 2 Anesthesia: Anesthesia Evaluation and Regional (specify below) Medications/Allergies Home Medications Medication Instructions Recorded Confirmed Last Taken Type ondansetron HCl 4 mg tablet 4 mg PO Q6H PRN nausea and 06/17/20 09/19/21 Unknown Rx (Zofran) vomiting #15 tabs famotidine 10 mg tablet (Pepcid AC) 1 mg PO PRN Nausea And Vomiting 01/21/22 Unknown History [id number] 1 mg 1 tab PO DAILY 01/21/22 01/21/22 01/20/22 06:00 History tablet Allergies Allergy/AdvReac Type Severity Reaction Status Date / Time No Known Allergies Allergy Verified 01/21/22 22:01 Current Medications Generic Name Dose Route Start Last Admin Trade Name Freq PRN Reason Stop Dose Admin Dextrose/Lactated Ringer's 1,000 mls @ 125 mls/hr 01/21/22 20:45 01/21/22 21:22 Dextrose 5%-Lactated Ringers IV 125 mls/hr .Q8H BILLY Administration Lactated Ringer's 1,000 mls @ 999 mls/hr 01/22/22 04:28 01/22/22 04:30 Lactated Ringers IV 999 mls/hr .Q1H1M PRN Administration See label comments PFSH Anesthesia Social History Smoking and tobacco status: never smoked Second hand smoke exposure: No Alcohol intake: never Caregiver/support person: Yes Lives independently: Yes Household members: spouse and children Marital status: Current occupational status: employed Current occupation: [employer] History of recent travel: No Current gender identity: Female Female Reproductive History : 2 Data Anesthesia : 01/21/22 20:40 01/21/22 20:40 Short CBC 01/21/22 Range/Units 20:40 WBC 8.4 (4.0-10.0) 10^3/uL Hgb 9.7 L (11.5-15.3) g/dL Hct 30.6 L (37.0-47.0) % MCV 80.1 L (81-99) fl Plt Count 266 (130-400) 10^3/cmm Neut % (Auto) 69.5 % Neut # (Auto) 5.84 (1.8-7.7) 10^3/uL BMP 01/21/22 20:40 Sodium 135 L Potassium 3.8 Chloride 100 Carbon Dioxide 24 BUN 10 Creatinine 0.5 Glucose 94 Calcium 8.6 Liver Function 01/21/22 Range/Units 20:40 Total Bilirubin 0.2 (0.15-1.2) mg/dL AST 12 (0-32) U/L ALT 8 (0-33) U/L Alkaline Phosphatase 121 H (35-105) U/L Albumin 3.1 L (3.5-5.2) g/dL Urine 01/21/22 Range/Units 20:40 Urine Color Yellow (Yellow) Urine Appearance Clear (CLEAR) Urine pH 6 (5-7) Ur Specific [place] 1.015 (1.005-1.030) Urine Protein Neg (Negative) Urine Glucose (UA) Norm (Normal) Urine Ketones Negative (Negative) Urine Nitrate Negative (Negative) Urine Bilirubin Neg (Negative) Ur Leukocyte Esterase Negative (Negative) Cardiac Studies: No Data to Display
--- NOTE | 2022-01-22 05:52 | P.ANES_ITS ---
Anesthesia Procedures Procedure/Date: 01/22/22 Epidural: Time Out Performed: Yes Consents Signed: Procedure Consent Consent: from patient, risks and benefits reviewed and patient agrees to proceed Lumbar Level: L3-L4 Epidural position: sitting Epidural procedure: sterile prep of area, 1% lidocaine to numb the area, 18 g needle, negative for p aresthesia passed, neg for paresthesia, test dose given, 1.5% xylocaine 1:200k epi, placed PCEA, no systemic response, sterile dressing applied, L.U.D. no apparent complications and 0.2% Ropiavacaine @ mls/hr (13) Additional Comments: DHARA at 8 taped at 15 at skin. negative CSF/blood aspiration
[2022-01-22] MEDS: ondansetron 2 mg/ML SDV 2 mL 4 MG IVP (05:55)
[2022-01-22] MEDS: benzocaine-menthol 78 gm Canister 1 SPRAY TOPICAL (09:27)
[2022-01-22] MEDS: ibuprofen 800 mg tablet PO ×3 (09:33→20:40)
[2022-01-22] MEDS: prenatal vitamin Capsule 1 CAP PO (09:33)
[2022-01-22] MEDS: docusate sodium 100 mg Capsule PO ×2 (09:33→18:11)
--- NOTE | 2022-01-22 16:40 | PM.OPHPUD ---
Labor & Delivery H&P Update Date of Procedure: January 22, 2022 Date H&P Performed: 01/21/22 Admission Diagnosis: induced hypertension IUP at 38 weeks 3 days gestation Preop diagnosis: IUP Other information: This is a 26-year-old G2, P1 at 38 weeks 3 days gestation who presented complaining of dizziness and blood pressure at work of 140/90. In the clinic her blood pressure was 168/98 with repeat blood pressure of 166/96. Her urine was 1+ for protein. Since she was term decision was made to go ahead and proceed with induction. Her cervix was not favorable so it would be she would be started on Cytotec
--- NOTE | 2022-01-22 16:41 | PM.DELIVERY ---
Delivery Note: Date of delivery: January 22, 2022 Pre-Delivery Course: The patient had routine care at [facility]. Blood type a positive antibody negative, hepatitis B surface antigen nonreactive, hepatitis C antibody nonreactive, HIV nonreactive, RPR nonreactive, gonorrhea and chlamydia negative, she passed her glucose tolerance test, she was GBS negative. Delivery: This is a 26-year-old G2 now P2 who was admitted for induction secondary to -induced hypertension. Her blood pressure in clinic was 168/98. She had had a blood pressure done at school earlier in the day that was 140/90. She did have some symptoms of dizziness. Her cervix was not favorable so she was started on Cytotec. The Cytotec put her into labor and she received an epidural for pain management. She was 6 cm when she was set up for the epidural. By the time the epidural was in place she was 9 cm with a bulging bag of water. I was notified by nursing that she was progressing rapidly. The epidural had not yet taken effect and she had spontaneous rupture of membranes with clear fluid. Within 5 to 10 minutes the had delivered. When I arrived the was on the mother's chest. The cord was clamped and cut. The placenta was delivered grossly intact and normal to inspection. There were no lacerations. 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
[2022-01-22 19:23] LABS: Hematocrit 29.3 % (37.0-47.0); Hemoglobin 9.1 g/dL (11.5-15.3); Mean Corpuscular HGB Conc 31.1 g/dL (30.0-36.0); Mean Corpuscular Hemoglobin 25.1 pg (28.0-34.0); Mean Corpuscular Volume 80.7 fl (81-99); Mean Platelet Volume 11.3 fL (7.4-10.4); Platelet Count 233 10^3/cmm (130-400); Red Blood Count 3.63 10^6/uL (4.1-5.3); Red Cell Distribution Width 13.2 % (12.1-15.1); White Blood Count 11.1 10^3/uL (4.0-10.0)
[2022-01-23 01:10] VITALS: BP 107/67; PULSE 105; RESP 16; TEMP 36.7
[2022-01-23 05:27] VITALS: BP 123/74; PULSE 68; RESP 17; TEMP 36.8; O2SAT 98
[2022-01-23 10:15] VITALS: BP 129/87; PULSE 90; RESP 16; TEMP 36.6; O2SAT 99
[2022-01-23] MEDS: docusate sodium 100 mg Capsule PO (10:16)
[2022-01-23] MEDS: ibuprofen 800 mg tablet PO (10:16)
[2022-01-23] MEDS: prenatal vitamin Capsule 1 CAP PO (10:16)
--- NOTE | 2022-01-23 11:35 | P.DS_ITS ---
Discharge Providers Date of Admission: 01/21/22 20:15 Date of Discharge: January 23, 2022 Attending Provider at Admission: Soo Mendoza MD Attending Provider at Discharge: Soo Mendoza MD Reason for Visit Reason for Visit: Induction Hospital Course Hospital Course This is a 26-year-old G2 now P2 who was admitted for induction secondary to -induced hypertension. She had a normal spontaneous vaginal delivery of a viable female infant. Mother and infant did well after delivery. On day #1 she was ambulating, tolerating a regular diet, had good pain control and decreased vaginal bleeding. She was comfortable with discharge home. Physical Exam Narrative: Alert and oriented sitting up in bed, heart regular rate and rhythm, lungs clear to auscultation bilaterally, abdomen soft nontender, fundus firm U- 3, extremities have minimal edema but no calf tenderness. Urinary Catheter Management: Schultz: Cath Placed During This Visit: yes, but has since been removed by the nurse Reason for Continuing Indwelling Catheter: Decision to DC Catheter Urinary Catheter Date of Insertion: 01/22/22 Urinary Catheter Time of Insertion: 05:55 Date Urinary Catheter Removed: 01/22/22 Time Urinary Catheter Discontinued: 06:26 Discharge Data Studies Completed and Pending Laboratory Results WBC 11.1 10^3/uL (4.0-10.0) H 01/22/22 19:00 RBC 3.63 10^6/uL (4.1-5.3) L 01/22/22 19:00 Hgb 9.1 g/dL (11.5-15.3) L 01/22/22 19:00 Hct 29.3 % (37.0-47.0) L 01/22/22 19:00 MCV 80.7 fl (81-99) L 01/22/22 19:00 MCH 25.1 pg (28.0-34.0) L 01/22/22 19:00 MCHC 31.1 g/dL (30.0-36.0) 01/22/22 19:00 RDW 13.2 % (12.1-15.1) 01/22/22 19:00 Plt Count 233 10^3/cmm (130-400) 01/22/22 19:00 MPV 11.3 fL (7.4-10.4) H 01/22/22 19:00 Neut % (Auto) 69.5 % 01/21/22 20:40 Lymph % (Auto) 18.7 % 01/21/22 20:40 [place] % (Auto) 10.5 % 01/21/22 20:40 Eos % (Auto) 0.4 % 01/21/22 20:40 Baso % (Auto) 0.2 % 01/21/22 20:40 Neut # (Auto) 5.84 10^3/uL (1.8-7.7) 01/21/22 20:40 Lymph # (Auto) 1.6 10^3/uL (0.8-4.8) 01/21/22 20:40 [place] # (Auto) 0.9 10^3/uL (0.2-0.9) 01/21/22 20:40 Eos # (Auto) 0.0 10^3/uL (0.0-0.8) 01/21/22 20:40 Baso # (Auto) 0.0 10^3/uL (0.0-0.1) 01/21/22 20:40 Nucleated RBC % (auto) 0 % 01/21/22 20:40 Nucleated RBCs # 0.0 /100WBC 01/21/22 20:40 Sodium 135 mmol/L (136-145) L 01/21/22 20:40 Potassium 3.8 mmol/L (3.5-5.1) 01/21/22 20:40 Chloride 100 mmol/L (98-107) 01/21/22 20:40 Carbon Dioxide 24 mmol/L (22-29) 01/21/22 20:40 Anion Gap 14.8 (5-19) 01/21/22 20:40 BUN 10 mg/dL (6-20) 01/21/22 20:40 Creatinine 0.5 mg/dL (0.5-0.9) 01/21/22 20:40 GFR Calculation 151.6 mL/min (90-130) H 01/21/22 20:40 Glucose 94 mg/dL (65-115) 01/21/22 20:40 Calculated Osmolality 279 mOsm/kg (285-295) L 01/21/22 20:40 Uric Acid 5.9 mg/dL (2.4-5.7) H 01/21/22 20:40 Calcium 8.6 mg/dL (8.5-10.5) 01/21/22 20:40 Total Bilirubin 0.2 mg/dL (0.15-1.2) 01/21/22 20:40 AST 12 U/L (0-32) 01/21/22 20:40 ALT 8 U/L (0-33) 01/21/22 20:40 Alkaline Phosphatase 121 U/L (35-105) H 01/21/22 20:40 Total Protein 5.9 g/dL (6.6-8.7) L 01/21/22 20:40 Albumin 3.1 g/dL (3.5-5.2) L 01/21/22 20:40 Globulin 2.8 g/dL (1.3-4.6) 01/21/22 20:40 Urine Color Yellow (Yellow) 01/21/22 20:40 Urine Appearance Clear (CLEAR) 01/21/22 20:40 Urine pH 6 (5-7) 01/21/22 20:40 Ur Specific [place] 1.015 (1.005-1.030) 01/21/22 20:40 Urine Protein Neg (Negative) 01/21/22 20:40 Urine Glucose (UA) Norm (Normal) 01/21/22 20:40 Urine Ketones Negative (Negative) 01/21/22 20:40 Urine Blood Neg (Negative) 01/21/22 20:40 Urine Nitrate Negative (Negative) 01/21/22 20:40 Urine Bilirubin Neg (Negative) 01/21/22 20:40 Urine Urobilinogen Norm mg/dL (Negative) 01/21/22 20:40 Ur Leukocyte Esterase Negative (Negative) 01/21/22 20:40 U Random Total Protein 6 mg/dL 01/21/22 20:40 Urine Creatinine 37 mg/dL (28-217) 01/21/22 20:40 Protein/Creatinin Ratio 0.16 mg/mg CR 01/21/22 20:40 Vitals Last Vital Signs Temp 97.9 F 01/23/22 10:15 Pulse 90 01/23/22 10:15 Resp 16 01/23/22 10:15 BP 129/87 01/23/22 10:15 Pulse Ox 99 01/23/22 10:15 O2 Del Method 01/23/22 10:15 Discharge Plan Discharge Patient Disposition: Home Condition: Stable Prescriptions: Continued ondansetron HCl [Zofran] 4 mg tablet 4 mg PO Q6H PRN (Reason: nausea and vomiting) Qty: 15 0RF [id number] 1 mg Tablet 1 tab PO DAILY Pepcid AC 10 mg Tablet 1 mg PO PRN (Reason: Nausea And Vomiting) Discharge Orders: Discharge Order (Routine); Ordered 01/23/22 Ordered By: Soo Mendoza Referrals: Soo Mendoza MD [Physician] - 1 month Discharge Diet: Usual diet Discharge Activity: Limit activity as instructed Patient Instructions: Opioid Safety Discharge Attestations Time Spent in Discharge Care*: less than 30 min Quality Metrics Clinical Quality Measures [ No reported AMI, CVA or VTE this stay] Coding Level of Care Code Acute Chg FW DC note
[2022-01-23 12:20] VITALS: BP 135/95; PULSE 98; RESP 18; TEMP 36.6
--- NOTE | 2022-01-23 16:42 | ANE.PACU2 ---
Inpatient post-anesthesia follow up: Airway intact: Yes Vital signs: Temperature 97.8 F Pulse Rate 98 Respiratory Rate 18 Blood Pressure 135/95 Pulse Oximetry 99 Oxygen Delivery Me thod Room Air Oxygen Flow Rate Fraction of Inspir ed Oxygen Hydration adequate: Yes Nausea and vomiting: No Pain level: 1 Mental status: Baseline Additional Comments: EMR review
== END 2022-01-23 12:45 | disposition home or self-care (01) | DRG 807 ==
LOC: OBGYN 20:17
PROVIDERS: Admitting Provider Family Medicine; Visit Provider Family Medicine
DX: O13.4 Gestational [pregnancy-induced] hypertension without significant proteinuria, complicating childbirth (principal); Z37.0 Single live birth; Z3A.38 38 weeks gestation of pregnancy
CPT/HCPCS: 36415; 51702; 59025; 59409; 80053; 81003; 82570; 84156; 84550; 85025; 85027; 96374; 99211; J2405; J2795

== ENCOUNTER → 2022-10-12 09:50 | Outpatient (BNVA) | payer OTHER, BC, MEDICAID, SELFPAY | PROVIDERS: PCP Family Medicine; Visit Provider Nurse Practitioner Family | DX: R50.9 Fever, unspecified (principal); A08.4 Viral intestinal infection, unspecified | CPT/HCPCS: 87426 ==

== ENCOUNTER → 2022-10-13 09:29 | Outpatient (BNVA) | payer OTHER, BC, MEDICAID, SELFPAY | PROVIDERS: PCP Nurse Practitioner Family; Visit Provider Nurse Practitioner Family | DX: J02.9 Acute pharyngitis, unspecified (principal) | CPT/HCPCS: 87071; 87880 ==

== ENCOUNTER 2024-10-12 15:09 | Outpatient (CLI) | payer BC, SELFPAY ==
[2024-10-12 15:42] LABS: HCG Quantitative 5.83 mIU/mL
== END 2024-10-12 15:10 | disposition home or self-care (01) ==
PROVIDERS: PCP Nurse Practitioner Family; Visit Provider Family Medicine
DX: O03.9 Complete or unspecified spontaneous abortion without complication (principal)
CPT/HCPCS: 84702

== ENCOUNTER 2024-10-18 05:49 | Day surgery (SDC) | payer BC, SELFPAY ==
[2024-10-18] VITALS (9 sets, daily range): BP systolic 113–143; BP diastolic 64–91; PULSE 77–101; RESP 16–18; TEMP 36.2–36.7; O2SAT 96–98; BMI 20.9
--- NOTE | 2024-10-18 06:28 | ANES.PREANE2 ---
Pre-Anesthetic Assessment Height/Weight: Height 5 ft 6 in Weight 130 lb Temp Pulse Resp BP Pulse Ox O2 Del Method 98.1 F 101 H 17 143/85 97 Room Air 10/18/24 06:14 10/18/24 06:14 10/18/24 06:14 10/18/24 06:14 10/18/24 06:14 10/18/24 06:14 Preop Diagnosis: Retained products of conception Operation Date: 10/18/24 07:00 Proposed Procedures p Dilation And Curettage (D&C) 15401, O03.4(Not Applicable) - Soo Mendoza MD Was Beta Rashmi taken within 24 hours: N/A Was Clonidine taken within 24 hours: N/A Last intake: Intake Last Liquid Date 10/17/24 Last Liquid Time 23:00 Last Solid Date 10/17/24 Last Solid Time 19:00 Social No alcohol and No tobacco Exam alert, oriented x 3, clear to auscultation bilaterally and regular rate & rhythm Airway Submandibular: within normal limits Cervical ROM: within normal limits Mallampati: Class III Dentition: full Comments: Comments: Overbite Anesthetic Plan ASA status: 2 Anesthesia: General Other: No prior issues with anesthesia NPO since yesterday evening Patient experienced a spontaneous at approximately 8 weeks. This was in early July. Patient was given Cytotec outpatient and passed most of the tissue but has since still been bleeding. Denies any cardiac or pulmonary issues Patient follows at outside facility, labs obtained there METs greater than 4 Plan for general anesthesia Medications/Allergies Home Medications ?Medication ?Instructions ?Recorded ?Confirmed ?Last Taken ?Type escitalopram oxalate 20 mg tablet 20 mg PO DAILY 08/10/22 10/18/24 10/17/24 History (Lexapro) cetirizine 10 mg tablet (Zyrtec) 10 mg PO DAILY #30 tabs 11/01/22 10/18/24 Unknown Rx fluticasone propionate 50 2 spray intranasal DAILY #16 grams 11/01/22 10/18/24 Unknown Rx mcg/actuation nasal spray,suspension (Flonase Allergy Relief) bupropion HCl 150 mg tablet,12 hr 150 mg PO DAILY 10/17/24 10/18/24 10/17/24 History sustained-release Allergies Allergy/AdvReac Type Severity Reaction Status Date / Time No Known Allergies Allergy Verified 10/18/24 06:11 Current Medications Generic Name Dose Route Start Last Admin Trade Name Freq PRN Reason Stop Dose Admin Sodium Chloride 1,000 mls @ 30 mls/hr 10/18/24 06:15 10/18/24 06:23 Sodium Chloride 0.9% IV 10/19/24 06:14 30 mls/hr .Q24H BILLY Administration PFSH Anesthesia Social History Smoking and tobacco/nicotine status: never used tobacco/nicotine Second hand smoke exposure: No Alcohol intake: never Substance/Drug Use: never Adopted: No Caregiver/support person: Yes Lives independently: Yes Household members: spouse and children Housing: House Marital status: Number of children: 2 Highest education level completed: Bachelor's Degree Education level details: education service: No Current occupational status: employed Current occupation: [employer] Pets and animals: Yes Current gender identity: Female
--- NOTE | 2024-10-18 07:10 | W.PM.OPSFHP ---
Same Day Surgery H&P Indication for Procedure/HPI DATE OF PROCEDURE: October 18, 2024 CHIEF COMPLAINT/INDICATIONFOR SURGICAL PROCEDURE: Incomplete miscarriage PREOP DIAGNOSIS: Retained products of conception PLANNED PROCEDURE: Operation Date: 10/18/24 07:00 Proposed Procedures p Dilation And Curettage (D&C) 28329, O03.4(Not Applicable) - Soo Mendoza MD Medications/Allergies* Home Medications ?Medication ?Instructions ?Recorded ?Confirmed ?Type escitalopram oxalate 20 mg tablet 20 mg PO DAILY 08/10/22 10/18/24 History (Lexapro) bupropion HCl 150 mg tablet,12 hr 150 mg PO DAILY 10/17/24 10/18/24 History sustained-release Allergies/Adverse Reactions Allergy/AdvReac Type Severity Reaction Status Date / Time No Known Allergies Allergy Verified 10/18/24 06:11 Current Medications: Generic Name Dose Route Start Last Admin Trade Name Freq PRN Reason Stop Dose Admin Sodium Chloride 1,000 mls @ 30 mls/hr 10/18/24 06:15 10/18/24 06:23 Sodium Chloride 0.9% IV 10/19/24 06:14 30 mls/hr .Q24H BILLY Administration Pertinent History/Comorbid Conditions* none Social History Smoking and tobacco/nicotine status: never used tobacco/nicotine Second hand smoke exposure: No Alcohol intake: never Substance/Drug Use: never Adopted: No Caregiver/support person: Yes Lives independently: Yes Household members: spouse and children Housing: House Marital status: Number of children: 2 Highest education level completed: Bachelor's Degree Education level details: education service: No Current occupational status: employed Current occupation: [employer] Pets and animals: Yes Current gender identity: Female Pertinent Exam Findings alert, oriented x 3, clear to auscultation bilaterally, regular rate & rhythm and procedure specific exam findings abdomen nontender Recommendations Surgery/Procedure today Coding Level of Care Code Acute Code for Chg Fwd
--- NOTE | 2024-10-18 07:50 | PM.OP ---
Operative Report Date of procedure: October 18, 2024 Pre-op diagnosis: InComplete miscarriage with retained products of conception Post-op diagnosis: same Procedure done: Suction dilation and curettage of the uterine Pathology: Products of conception Surgeon: Soo Mendzoa MD Estimated blood loss (mL): 200 IV fluids (mL): 800 Complications: none Procedure: After informed consent the patient was taken to the OR where general anesthesia was administered she was prepped and draped in normal sterile fashion in dorsal lithotomy position. Weighted speculum was inserted into the vagina and the anterior cervix was grasped with a tenaculum. Uterus was sounded to 13 cm. Cervix was dilated using dilators. #9 curved curette was introduced into the uterus and suction curettage was performed. Was alternated with sharp curettage using a curette. Several passes were performed using both the sharp curette and the suction. After It was felt that there was no more retained tissue in the uterus 600 mcg of Misoprostil was placed vaginally. The patient was awakened in the OR and went to recovery in good condition. There was not much blood loss only about 200 mL maximum
--- NOTE | 2024-10-18 08:50 | ANE.PACU2 ---
Inpatient post-anesthesia follow up: Airway intact: Yes Vital signs: Temperature 97.4 F Pulse Rate 77 Respiratory Rate 16 Blood Pressure 122/64 Pulse Oximetry 98 Oxygen Delivery Me thod Room Air Oxygen Flow Rate Fraction of Inspir ed Oxygen Hydration adequate: Yes Nausea and vomiting: No Pain level: 2 Mental status: Baseline
== END 2024-10-18 08:50 | disposition home or self-care (01) ==
PROVIDERS: PCP Family Medicine; Visit Provider Family Medicine
PROC: (CPT 58120; principal; 2024-10-18 07:00)
DX: O03.4 Incomplete spontaneous abortion without complication (principal); Z3A.08 8 weeks gestation of pregnancy
CPT/HCPCS: 59820; 88305; J2250; J2704; J3010; J7030; J9999

== ENCOUNTER 2024-10-18 10:33 | Emergency (ER) | payer BC, SELFPAY ==
--- OUTSIDE RECORDS SUMMARY | 2024-10-18 10:39 | XMS_ITS | Clinical Summary ---
Author Organization [facility] Address [address] [place] [address] Phone Care Team Providers Care Polishing Pad Mounter Name Role Phone Soo Mendoza MD Primary Care Provider + [phone] Allergies No known active allergies Medications escitalopram oxalate (LEXAPRO) 10 mg tablet Take 10 mg by mouth daily. Active semaglutide (Ozempic) 0.25 mg or 0.5 mg(2 mg/1.5 mL) Pen Injector Inject 0.5 mg by subcutaneous injection every 7 days. Active Social History Tobacco Use Types Packs/Day Years Used Date Smoking Tobacco: Never Smokeless Tobacco: Never Tobacco Cessation:Counseling Given: Not Answered Alcohol Use Standard Drinks/Week Comments Never 0 (1 standard drink = 0.6 oz pur e alcohol) Feeling Safe Answer Date Recorded Are you in a relationship wi th someone who hurts you emotionally and/or physically? No 03/15/2023 Comments Unknown Sex and Gender Information Value Date Recorded Sex Assigned at Not on file Legal Sex Female 2:13 AM UPHOLSTERY ESTIMATOR Gender Identity Not on file Sexual Orientation Not on file Last Filed Vital Signs Vital Sign Reading Time Taken Comments Blood Pressure 119/64 03/15/2023 3:29 AM UPHOLSTERY ESTIMATOR Pulse 84 03/15/2023 2:21 AM UPHOLSTERY ESTIMATOR Temperature 36.3 C (97.4 F) 03/15/2023 3:29 AM UPHOLSTERY ESTIMATOR Respiratory Rate 18 03/15/2023 3:29 AM UPHOLSTERY ESTIMATOR Oxygen Saturation 98% 03/15/2023 3:29 AM UPHOLSTERY ESTIMATOR Inhaled Oxygen Concentration - - Weight 79.4 kg (175 lb) 03/15/2023 2:21 AM UPHOLSTERY ESTIMATOR Height 167.6 cm (5' 6 ) 03/15/2023 2:21 AM UPHOLSTERY ESTIMATOR Body Mass Index 28.25 03/15/2023 2:21 AM UPHOLSTERY ESTIMATOR Plan of Treatment Health Maintenance Due Date Last Done Comments HEPATITIS B VACCINES (1 of 3 - 19+ 3-dose series) 2016 CERVICAL CANCER SCREENING 2018 HPV/Cotest (21-29) 2018 PAP SMEAR 2018 INFLUENZA VACCINE (#1) 2023 DTAP/TDAP/TD VACCINES (2 - T d or Tdap) 11/21/2031 11/20/2021 HPV VACCINES Aged Out No longer eligi ble based on patient's age to complete this topic Insurance BC[employer] [place] MED[place] ALLIED BENEFIT SYSTEMS PPO [id number] Care Teams Polishing Pad Mounter Relationship Specialty Start Date End Date Soo Mendoza MD [address] [place] [address] PCP - General Family Practice 03/15/23
--- OUTSIDE RECORDS SUMMARY | 2024-10-18 10:39 | XMS_ITS | Continuity of Care Document ---
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 [email or web address] Not available 10/12/2024 16:01:46 Plan of Treatment Reminders Order Date Submit Date Provider Last Modified By Organization Details Last Modified Time Details Appointments None recorded. Lab beta-HCG, quantitati ve, serum or plasma 2024 025 JENN [facility] ([facility]), [address] [place], [address], 5 07:31:34 CBC 2024 025 [email or web address] [facility], [address], [address], 12:52:41 Referral None recorded. Procedures None recorded. Surgeries None recorded. Imaging US, pelvis, complete 2024 025 [email or web address] [facility], [address] [place], [address], 13:46:29 Medication Orders None recorded. Patient TargetsNo targets recorded. Patient InstructionsNo instructions recorded. Reason for Referral None Reported. Results Created Date Observation Date Name Description Value Unit Range Abnormal Flag Note LastModifiedBy Organization Detail LastModifiedTime 08/08/1908/07/2024 US, obste tric, trans vagin al No observ ation record ed. [email or web address] [facility] [address] [place], [address], 08/08/2024 09:32:07 08/17/19 25 08/15/2024 US, obste tric, trans vagin al No observ ation record ed. [facility] [address] [place], [address], 08/17/2024 09:48:32 10/14/1910/12/2024 , pelvi s No observ ation record ed. [email or web address] [facility] [address] [place], [address], 10/16/2024 13:04:13 Result Notes None recorded. Problems Name Problem SNOMED Code Status Onset Date Resolution Date Notes Provider Name and Address Organization Details Recorded Time Body mass index 30+ - obesity 345676808 Completed 202101/21/2022 BMI 31.0-31. 9,adult - Status is Inactive ; Recorded 01/22/20 3:26PM by Kerri Gaspar LPN, Mundo on/Adden dum; Promoted ; acuity set as *; Not Available [facility] 3 03:14:31 Gestatio n period, 36 weeks 12035515 Completed 202101/21/2022 36 WEEKS GESTATIO N OF PREGNANC Y - Status is Inactive ; Recorded 01/22/20 3:26PM by Kerri Gaspar LPN, Annotati on/Adden dum; Promoted ; acuity set as *; Not Available [facility] 3 03:14:31 Subcutan eous contrace ptive implant present [id number] Completed 202101/21/2022 NEXPLANO N REMOVAL - Status is Inactive ; Recorded 01/22/20 3:26PM by Kerri Gaspar LPN, Mundo on/Adden dum; Promoted ; acuity set as *; Not Available [facility] 3 03:14:32 Seasonal allergic rhinitis 277560607 Active 2022 KERRI GASPAR [facility] 3 16:32:23 Mixed anxiety and depressi ve disorder 113230515 Active 2022 KERRI GASPAR [facility] 3 16:32:34 Pregnanc y 64803887 Completed 202408/07/2024 ALIA JEANINE [facility] 5 10:34:23 Problem Notes None recorded. Procedures Surgical History Date Name Laterality Status Provider Name and Address Organization Details Recorded Time 07/30/2021 Date of Last Pap Smear completed KERRI GASPAR [facility] 01/20/2023 16:33:12 Imaging Results None recorded. Procedure Notes None recorded. Medical Equipment None Reported. Allergies No known drug allergies Medications Name Sig Start Date Stop Date Status Note LastModified by Organization Details LastModified Time bupropion HCl SR 150 mg tablet,12 hr sustained -release TAKE 2 TABLETS BY MOUTH ONCE DAILY IN THE MORNING active Not Available Not Available No t Available cetirizin e 10 mg tablet TAKE 1 TABLET BY MOUTH ONCE DAILY 03/22 completed Not Available Not Available Not Available hydrocodo ne 5 mg-acetam inophen 325 mg tablet 1-2 tabs po [id number] prn severe pain 10/17 completed Not Available Not Available Not Available ciproflox acin 500 mg tablet TAKE 1 TABLET BY MOUTH TWICE DAILY FOR 3 DAYS 07/19 completed Not Available Not Available Not Available ketorolac 10 mg tablet TAKE 1 TABLET BY MOUTH EVERY 6 HOURS NEEDED FOR CRAMPS 08/31 completed Not Available Not Available Not Available amoxicill in 875 mg tablet TAKE 1 TABLET BY MOUTH TWICE DAILY FOR 10 DAYS 01/20 completed Not Available Not Available Not Available cephalexi n 500 mg capsule TAKE 1 CAPSULE BY MOUTH 4 TIMES DAILY FOR 7 DAYS 12/29 completed Not Available Not Available Not Available misoprost ol 200 mcg tablet TAKE 4 TABLETS BY MOUTH NOW THEN TAKE 4 TABLETS BY MOUTH 8 HOURS LATER 10/17 completed Not Available Not Available Not Available ondansetr on 4 mg disintegr ating tablet DISSOLVE 1 TABLET ON THE TONGUE EVERY 6 HOURS FOR 3 DAYS NEEDED FOR NAUSEA OR VOMITING 08/21 completed Not Available Not Available Not Available fluticaso ne propionat e 50 mcg/actua tion nasal spray,marcelo pension USE 2 SPRAY(S) IN EACH NOSTRIL ONCE DAILY 03/22 completed Not Available Not Available Not Available amoxicill in 875 mg-potass ium clavulana te 125 mg tablet TAKE 1 TABLET BY MOUTH EVERY 12 HOURS FOR 7 DAYS 12/29 completed Not Available Not Available Not Available escitalop jarek 10 mg tablet TAKE 1 TABLET BY MOUTH ONCE DAILY 12/29 completed Not Available Not Available Not Available escitalop jarek 20 mg tablet TAKE 1 TABLET BY MOUTH ONCE DAILY active Not Available Not Available No t Available Lexapro daily (suggest ed at night) 01/20 completed Recorded 03/24/20 22 11:07AM by Soo Mendoza MD, Office Visit; Refill Quantity : 30; Tablet; Not Available Not Available Not Available famotidin e (PF) 01/20 completed 0; Recorded 02/24/20 22 10:37AM by Josh Wilson, Office Visit; Not Available Not Available Not Available Ozempic 0.25 mg or 0.5 mg (2 mg/1.5 mL) subcutane ous pen injector inject 0.25mg weekly for 2 weeks then 0.5mg weekly. 12/29 completed Not Available Not Available Not Available Vitals Date Recorded Body height Body mass index (BMI) Body weight Body temperature Oxygen saturation Oxygen saturation in Arterial blood by Pulse oximetry Heart rate Systolic blood pressure Diastolic blood pressure Provider Name and Address Organization Details Last Updated DateTime 167.64 cm 31.3 kg/m2 65361.8 5 g 98.1 [degF] 98 % 98 % 98 /min 120 mm[Hg] 70 mm[Hg] KERRI TIFFANIE GASPAR [facility] 12:04:12 Social History Question Answer Notes LastModified by Organizat ion Details LastModified Time Tobacco Smoking Status Never Smoker ALIA quintero [facility] 03/22/2023 14:18:56 What Was The Date Of Your Most Recent Tobacco Screening? 10/12/2024 [email or web address] Information not available 10/12/2024 Sex: Unknown Functional Status Question Answer Note LastModified by Organizat ion Details LastModified Time Do you use any illicit or recreational drugs? No [email or web address] Information not available 03/22/2023 What is your level of alcohol consumption? None [email or web address] Information not available 03/22/2023 Mental Status None recorded. Family History Relationship Description Onset Age of this Age Resolved Age Notes LastModified by Organization Details LastModified Time Mother Malignant lymphoma [email or web address] Not available 07/2022 16:33:51 Medical History Condition Response Coronary Artery Disease N Other N Gout N Kidney Stones N Blood Diseases N Hyperthyroidism N Breast Cancer N Blood Transfusion N Depression Y Hypothyroidism N Lung Disease N COPD N Defects or Inherited Disease N Developmental or Behavioral Disorders N Breast Problem N Difficulty Swallowing N Anesthesia Complications N Meniere's disease N Anxiety Disorder Y Muscle, Joint, or Bone Problems N Vision or Eye Problems N Arthritis N Polyps N Infertility N Cancer N Varicosities N Stroke N Endometriosis N Bladder or Kidney Problems N High Cholesterol N Liver Disease N Fibromyalgia N Headaches N Kidney Disease N Allergies/Hayfever Y Heart Problems N Ear or Hearing Problems N Hospitalizations N Thyroid Problems N GI Problems N ADD/ADHD N Skin Problems N Eating Disorder N Anemia N Constipation N Mental Illness N Ovarian Cancer N Diabetes N Bedwetting N Seizures/Epilepsy N Tuberculosis N Eczema N Diverticulitis N Abuse/Domestic Violence N Asthma N Reflux/GERD N Hepatitis N Heart Disease N Pulmonary Embolism N Pre-Eclampsia N Hypertension N Chronic Ear Infections N Osteoporosis N Chicken Pox N Autism Spectrum Disorder (ASD) N Thrombophilias N Gynecological History Statement/Question Response Abnormal Pap N Date of Last Pap Smear 07/30/2021 Obstetrics History GPAL:G 3 P 2 0 1 2 Type Value Full Term 2 Spontaneous 1 Living 2 Total 3 Immunizations Vaccine Type Date Status Note Provider Nam e and Address Organization Details Recorded Time Tdap 11/20/2021 completed Not Available [facility] 11/14/2022 02:29:47 Past Encounters Encounter ID Performer Location Encounter Start Date Encounter Closed Date Diagnosis/Indication Diagnosis SNOMED-CT Code Diagnosis ICD10 Code Diagnosis Note [id number] Soo Mendoza MD [facility] ([facility]) [address] [place] [address] 10/12/2024 11:37:03 10/12/2024 13:46:29 Miscarriage [id number] O03.9 [id number] Soo Mendoza MD [facility] ([facility]) [address] [place] [address] 10/12/2024 14:43:43 10/13/2024 10:41:33 Miscarriage [id number] O03.9 Health Concerns Section Related Observation LastModified by Organization Detai ls LastModified Time None Recorded Concern Status LastModified by Organization Details LastModified Time None Recorded Payers Encounter Date Sequence Insurance Name Policy Number Policy Nash Covered Member ID Nash Member ID Guarantor Name 10/12/2024 2 *SELF PAY* As nini Farley 10/12/2024 1 [place] G[place]ZALEZ [id number] Phoebe Farley [id number] Phoebe Farley Notes Date Note Type Note Provider Name and Address Organization Details Recorded Time 10/12/2024 text/html Abnormal BleedingReported bypatient.Duration:neymar ly Quality:spotting; light; passing clots; heavy; red; brown Associated Symptoms:no pelvic pain; no fatigue;abdominal pain today it is light tinge2 week scotty tapered off then picks up again and is heavy for several dayshas happened several times Soo Mendoza MD [address] [place] [address], [phone], [facility] [place] 10/12/2024 16:01:51 OBGyn Episode Ob Episode Information Episode Created Date Number of Fetuses Patient Bloodtype Patient rh Status Prepregnancy Weight lbs Domestic Partner Domestic Partner Phone Father Name Chief Engineer Waterworks Status 07/20/19 25 1 Tenzin Farely CLOSED Fetus Data First Name Last Name Admitted to NICU Weight (g) Sex Living Outcome Pediatric Complications Fetus ID Race Codes Race Delivery Type [id number] Mikey Calculation Initial Mikey Date Initial Exam Date Initial Exam Provider Initial Ultrasound Date Last Menstrual Period Date Ultra Sound Weeks Gestation 03/17/2025 07/19/2024 06/10/2024 0 Eighteen To Twenty Week Mikey Update Ultra Sound Date Fundal Height At Umbil Quickening Date Ultra Sound Latest Weeks Gestation Final Mikey Confirmed By Final Mikey Confirmed Date Final Mikey Date Ultra Sound Latest Days Gestation 0 0 Pre- Flowsheet Flowsheet Date 07/19/2024 Medeiros Score Blood Edema Fundus Height Fundus Units Glucose Ketones Leukocytes Nitrite Labor Signs Protein Cervic Dilation Cervic Effacement Cervic Station Type Weight in lbs Pre/Post Dialysis Refused Weight 188.657569604418 BP Diastolic BP Location Tested BP Systolic BP Type 70 120 Fetus Heart Rate Present Fetus Movement Comments Flowsheet Date 08/07/2024 Medeiros Score Blood Edema Fundus Height Fundus Units Glucose Ketones Leukocytes Nitrite Labor Signs Protein Cervic Dilation Cervic Effacement Cervic Station Type Weight in lbs Pre/Post Dialysis Refused BP Diastolic BP Location Tested BP Systolic BP Type Fetus Heart Rate Present Fetus Movement Comments Menstrual History Last Menstrual Date Menses Monthly On Bcp Conception Prior Menses Frequency Hcg Plus Date Menarche Onset Age 0206/10/2024 false Genetic Screening And Infection History Question Response Note Patient's Age Will Be 35 Yea rs Or Older At Estimated Date of Delivery false Thalassemia (Yoruba, Hungarian, Mediterranean, Or Background): MCV < 80 false Neural Tube Defect (Meningom yelocele, Spina Bifida, Or Anencephaly) false Congenital Heart Defect false Down Syndrome false Yehuda-Sachs (eg, Anabaptist, Cajun, Croatian-[place]) f alse Ezequiel Disease false Sickle Cell Disease Or Trait () false Hemophilia Or Other Blood Disorders false Muscular Dystrophy false Cystic Fibrosis false Mcgee's Chorea false Intellectual Disability/Autism false If Yes, Was Person Tested For Fragile X? false Other Inherited Genetic Or Chromosomal Disorder false Maternal Metabolic Disorder (eg, Type 1 Diabetes , PKU) false Patient Or Baby's Father Had A Child With Defects Not Listed Above false Recurrent Loss, Or A Stillbirth false Medications (including Suppl ements, Vitamins, Herbs, OTC Drugs), Illicit/Recreational Drugs, Alcohol true Wellbutrin , Lexapro If Yes, Agent(s) And Strength/Dosage false Any Other Genetic History false Live With Someone With TB Or Exposed To TB false Patient Or Partner Has History Of Genital Herpes false Rash Or Viral Illness Since Last Menstrual Perio d false History Of STD, Gonorrhea, Chlamydia, HPV, Syphi lis false Other Infection History false History of HIV false History of Hepatitis false Prior GBS-infected child false Hemoglobinopathy Or Carrier false Other Structural Defect false Recent Travel History Outside of Country false Mental Retardation/Autism false Delivery Information Delivery Date Delivery Type Labor Anesthesia Weeks Gestation Incision Type Labor Labor Length Hrs Delivered By Post Complications Tubal Sterilization Discharge Date Comments Discharge Information Feeding Method Contraceptive Method Maternal HG B and HCT Levels
--- OUTSIDE RECORDS SUMMARY | 2024-10-18 10:39 | XMS_ITS | Continuity of Care Document ---
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 Plan of Treatment Reminders Order Date Submit Date Provider Last Modified By Organization Details Last Modified Time Details Appointments None recorded. Lab None recorded. Referral None recorded. Procedures None recorded. Surgeries None recorded. Imaging US, transvagina l - [id number] 2024 025 [email or web address] [facility], [address] [place], [address], 10:41:34 Medication Orders None recorded. Patient TargetsNo targets recorded. Patient InstructionsNo instructions recorded. Reason for Referral None Reported. Results Created Date Observation Date Name Description Value Unit Range Abnormal Flag Note LastModifiedBy Organization Detail LastModifiedTime 08/08/1908/07/2024 US, obste tric, trans vagin al No observ ation record ed. [email or web address] [facility] [address] [place], [address], 08/08/2024 09:32:07 08/17/19 25 08/15/2024 US, obste tric, trans vagin al No observ ation record ed. [facility] [address] [place], [address], 08/17/2024 09:48:32 10/14/19 25 10/12/2024 US, delfino butler No observ ation record ed. [email or web address] [facility] [address] [place], [address], 10/16/2024 13:04:13 Result Notes None recorded. Problems Name Problem SNOMED Code Status Onset Date Resolution Date Notes Provider Name and Address Organization Details Recorded Time Body mass index 30+ - obesity 610749033 Completed 202101/21/2022 BMI 31.0-31. 9,adult - Status is Inactive ; Recorded 01/22/20 3:26PM by Kerri Gaspar LPN, Annotati on/Adden dum; Promoted ; acuity set as *; Not Available On [facility] of [facility] 3 03:14:31 Gestatio n period, 36 weeks 47505060 Completed 202101/21/2022 36 WEEKS GESTATIO N OF PREGNANC Y - Status is Inactive ; Recorded 01/22/20 3:26PM by Kerri Gaspar LPN, Annotati on/Adden dum; Promoted ; acuity set as *; Not Available [facility] of [facility] 3 03:14:31 Subcutan eous contrace ptive implant present 980692968 Completed 202101/21/2022 NEXPLANO N REMOVAL - Status is Inactive ; Recorded 01/22/20 3:26PM by Kerri Gaspar LPN, Annotati on/Adden dum; Promoted ; acuity set as *; Not Available [facility] of [facility] 3 03:14:32 Seasonal allergic rhinitis 202406680 Active 2022 KERRI quintero [facility] 3 16:32:23 Mixed anxiety and depressi ve disorder 977489659 Active 2022 KERRI quintero [facility] 3 16:32:34 Pregnanc y 89182693 Completed 202408/07/2024 [facility] 10[facility]34[facility] Problem Notes None recorded. Procedures Surgical History Date Name Laterality Status Provider Name and Address Organization Details Recorded Time 07/30/2021 Date of Last Pap Smear [facility]23 16:33:12 Imaging Results None recorded. Procedure [...] inophen 325 mg tablet 1-2 tabs po [id number] prn severe pain 10/17 completed Not Available [...] Last Updated DateTime 167.64 cm 31.3 kg/m2 40669.8 5 g 98.1 [degF] 98 % 98 % 98 /min 120 mm[Hg] 70 mm[Hg] KERRI GASPAR [facility] 12:04:12 Social History Question Answer Notes LastModified by [employer] Details LastModified Time Tobacco Smoking Status Never Smoker ALIA quintero [facility] 03/22/2023 14:18:56 What Was The Date Of Your Most Recent Tobacco Screening? 10/12/2024 [email or web address] Information not available 10/12/2024 Sex: Unknown Functional Status Question Answer Note LastModified by [employer] Details LastModified Time Do you use any illicit or recreational drugs? No [email or web address] Information not available 03/22/2023 What is your level of alcohol consumption? None [email or web address] Information not available 03/22/2023 Mental Status None recorded. Family History Relationship Description Onset Age of this Age Resolved Age Notes LastModified by Organization Details LastModified Time Mother Malignant lymphoma Not available 07/2022 16:33:51 Medical History Condition Response Coronary Artery Disease N Other N Gout N Kidney Stones N Blood Diseases N Hyperthyroidism N Breast Cancer N Blood Transfusion N Hypothyroidism N Lung Disease N COPD N Depression Y Defects or Inherited Disease N Developmental or Behavioral Disorders N Breast Problem N Difficulty Swallowing N Anesthesia Complications N Anxiety Disorder Y Meniere's disease N Muscle, Joint, or Bone Problems N Vision or Eye Problems N Arthritis N Polyps N Infertility N Cancer N Varicosities N Stroke N Endometriosis N Bladder or Kidney Problems N High Cholesterol N Liver Disease N Headaches N Fibromyalgia N Kidney Disease N Allergies/Hayfever Y Heart [...] N Heart Disease N Pulmonary Embolism N Chronic Ear Infections N Pre-Eclampsia N Hypertension N Chicken Pox N Autism Spectrum Disorder (ASD) N Osteoporosis N Thrombophilias N Gynecological History Statement/Question Response Abnormal Pap N Date of Last Pap Smear 07/30/2021 Obstetrics History GPAL:G 3 P 2 0 1 2 Type Value Full Term 2 Spontaneous 1 Living 2 Total 3 Immunizations Vaccine Type Date Status Note Provider Nam e and Address Organization Details Recorded Time Tdap 11/20/2021 completed Not Available [facility] 11/14/2022 02:29:47 Past Encounters Encounter ID Performer Location Encounter Start Date Encounter Closed Date Diagnosis/Indication Diagnosis SNOMED-CT Code Diagnosis ICD10 Code Diagnosis Note [id number] Soo Mendoza MD [facility] ([facility]) [address] [place] [address] 10/12/2024 11:37:03 10/12/2024 13:46:29 Miscarriage [id number] O03.9 [id number] Soo Mendoza MD [facility] ([facility]) [address] [place] [address] 10/12/2024 14:43:43 10/13/2024 10:41:33 Miscarriage [id number] O03.9 Health Concerns Section Related Observation LastModified by Organization Detai ls LastModified Time None Recorded Concern Status LastModified by Organization Details LastModified Time None Recorded Payers Encounter Date Sequence Insurance Name Policy Number Policy Nash Covered Member ID Nash Member ID Guarantor Name 10/12/2024 2 *SELF PAY* As nini Farley 10/12/2024 1 [place] [id number] Phoebe Farley [id number] Phoebebelle Farley Notes Date Note Type Note Provider Name and Address Organization Details Recorded Time 10/12/2024 text/html Abnormal BleedingReported bypatient.Duration:neymar ly Quality:spotting; light; passing clots; heavy; red; brown Associated Symptoms:no pelvic pain; no fatigue;abdominal pain today it is light tinge2 week scotty tapered off then picks up again and is heavy for several dayshas happened several times Soo Mendoza MD [address] [place] [address], [phone], [facility] 10/12/2024 16:01:51 OBGyn Episode Ob Episode Information Episode Created Date Number of Fetuses Patient Bloodtype Patient rh Status Prepregnancy Weight lbs Domestic Partner Domestic Partner Phone Father Name Heat Treat Operator Status 07/20/19 25 1 Tenzin Farley CLOSED Fetus Data First Name Last Name [...] Ultra Sound Latest Days Gestation 0 0 Pre-carmen Flowsheet Flowsheet Date 07/19/2024 Medeiros Score Blood Edema Fundus Height Fundus Units Glucose Ketones Leukocytes Nitrite Labor Signs Protein Cervic Dilation Cervic Effacement Cervic Station Type Weight in lbs Pre/Post Dialysis Refused Weight 188.415290930097 BP Diastolic BP Location Tested BP Systolic [...] At Estimated Date of Delivery false Thalassemia (Arabic, Stateless, Mediterranean, Or Background): MCV < 80 false Neural Tube Defect (Meningom yelocele, Spina Bifida, Or Anencephaly) false Congenital Heart Defect false Down Syndrome false Yehuda-Sachs (eg, Zoroastrianism, Cajun, Russian-Siren) f alse Ezequiel Disease false Sickle Cell Disease Or Trait () false Hemophilia Or Other Blood Disorders false Muscular Dystrophy false Cystic Fibrosis false Lane's Chorea false Intellectual Disability/Autism false If Yes, [...]
--- OUTSIDE RECORDS SUMMARY | 2024-10-18 10:39 | XMS_ITS | Data Portability ---
Author Organization [facility], [facility] Address [address] [facility] [address] [place] [address] Care Team Providers Care Duct Layer Supervisor Name Role Phone SOO MENDOZA Primary Care [...] Time Details Appointments None recorded. Lab beta-HCG, quantitativ e, serum or plasma 2024 025 JENN [facility] ([facility]), [address] [place], [address], 07:31:34 CBC 2024 025 [email or web address] [facility], [address] [place] [address], [address], 12:52:41 Referral None recorded. Procedures None recorded. Surgeries None recorded. Imaging US, obstetric, follow-up 2024 025 [email or web address] [facility], [address] [place], [address], 16:45:14 US, obstetric, transvagina l - [id number] 2024 025 [email or web address] [facility], [address] [place], [address], 15:52:10 US, transvagina l - [id number] 025 [email or web address] [facility], [address] [place], [address], 10:41:34 US, pelvis, complete 2024 025 [email or web address] [facility], [address] [place], [address], 13:46:29 Medication Orders None recorded. Patient TargetsNo targets recorded. Patient InstructionsNo instructions recorded. Reason for Referral None Reported. Results Created Date Observation Date Name Description Value Unit Range Abnormal Flag Note LastModifiedBy Organization Detail LastModifiedTime 08/08/19 25 08/07/2024 US, obste tric, trans vagin al No observ ation record ed. [email or web address] [facility] [address] [place], [address], 08/08/2024 09:32:07 08/17/19 25 08/15/2024 US, obste tric, trans vagin al No observ ation record ed. [facility] [address] [place], [address], 08/17/2024 09:48:32 10/14/19 25 10/12/2024 US, pelvi s No observ ation record ed. [facility] [address] [place], [address], 10/16/2024 13:04:13 Result Notes None recorded. Problems Name Problem SNOMED Code Status Onset Date Resolution Date Notes Provider Name and Address Organization Details Recorded Time Body mass index 30+ - obesity 012467124 Completed 202101/21/2022 BMI 31.0-31. 9,adult - Status is Inactive ; Recorded 01/22/20 3:26PM by Kerri Gaspar LPN, Annotati on/Adden dum; Promoted ; acuity set as *; Not Available [facility] 3 03:14:31 Gestatio n period, 36 weeks 72636144 Completed 202101/21/2022 36 WEEKS GESTATIO N OF PREGNANC Y - Status is Inactive ; Recorded 01/22/20 3:26PM by Kerri Gaspar LPN, Annotati on/Adden dum; Promoted ; acuity set as *; Not Available [facility] 3 03:14:31 Subcutan eous contrace ptive implant present 774610532 Completed 202101/21/2022 NEXPLANO N REMOVAL - Status is Inactive ; Recorded 01/22/20 3:26PM by Kerri Gaspar LPN, Annotati on/Adden dum; Promoted ; acuity set as *; Not Available [facility] 3 03:14:32 Seasonal allergic rhinitis 253267357 Active 2022 KERRI GASPAR [facility] 3 16:32:23 Mixed anxiety and depressi ve disorder 720177048 Active 2022 KERRI GASPAR [facility] 3 16:32:34 Pregnanc y 80741497 Completed 202408/07/2024 [facility] 10:34:23 Problem Notes None recorded. Procedures Surgical History Date Name Laterality Status Provider Name and Address Organization Details Recorded Time 07/30/2021 Date of Last Pap Smear completed KERRI GASPAR [facility] 01/20/2023 16:33:12 Imaging Results None recorded. [...] inophen 325 mg tablet 1-2 tabs po [id number] prn severe pain 10/17 completed Not Available [...] and Address Organization Details Last Updated DateTime 5 167.64 cm 30.8 kg/m2 65580.1 4 g 97.1 [degF] 98 % 98 % 100 /min 120 mm[Hg] 74 mm[Hg] ALIA SOLORZANO [facility] 5 16:21:49 Date Recorded Body height Body mass index (BMI) Body weight Body temperature Oxygen saturation Oxygen saturation in Arterial blood by Pulse oximetry Heart rate Systolic blood pressure Diastolic blood pressure Provider Name and Address Organization Details Last Updated DateTime 5 167.64 cm 31.3 kg/m2 37809.8 5 g 98.1 [degF] 98 % 98 % 98 /min 120 mm[Hg] 70 mm[Hg] KERRI GASPAR [facility] 5 12:04:12 Date Recorded Body height Body temperature Oxygen saturation Oxygen saturation in Arterial blood by Pulse oximetry Heart rate Systolic blood pressure Diastolic blood pressure Provider Name and Address Organization Details Last Updated DateTime 5 167.64 cm 97.1 [degF] 99 % 99 % 100 /min 114 mm[Hg] 72 mm[Hg] ALIA SOLORZANO [facility] 5 15:34:39 Social History Question Answer Notes LastModified by Organizat ion Details LastModified Time Tobacco Smoking Status Never Smoker ALIA quintero [facility] 03/22/2023 14:18:56 What Was The Date Of Your Most Recent Tobacco Screening? 10/12/2024 [email or web address] Information not available 10/12/2024 Sex: Unknown Functional Status Question Answer Note LastModified by Organizat ion Details LastModified Time Do you use any illicit or recreational drugs? No [email or web address] Information not available 03/22/2023 What is your level of alcohol consumption? None [email or web address] Information not available 03/22/2023 Mental Status None recorded. Family History Relationship Description Onset Age of this Age Resolved Age Notes LastModified by Organization Details LastModified Time Mother Malignant lymphoma [email or web address] Not available 07/2022 16:33:51 Medical History Condition Response Coronary Artery Disease N Other N Gout N Kidney Stones N Blood Diseases N Hyperthyroidism N Breast Cancer N Blood Transfusion N Hypothyroidism N Depression Y COPD N Lung Disease N Defects or Inherited Disease N Developmental [...] Immunizations Vaccine Type Date Status Note Provider Dionicio jain and Address Organization Details Recorded Time Tdap 11/20/2021 completed Not Available [facility] 11/14/2022 02:29:47 Past Encounters Encounter ID Performer Location Encounter Start Date Encounter Closed Date Diagnosis/Indication Diagnosis SNOMED-CT Code Diagnosis ICD10 Code Diagnosis Note [id number] Soo Mendoza MD [facility] [address] [place] [id number] 5 01/20/2023 16:19:55 01/29/2023 12:38:53 test positive 980991405 Z32.01 home positive digital. cycles have been irregular. 28, 43, 34, negative test here today. Mixed anxi ety and depressive disorder 404581698 F41.8 decrease to 10mg from 20mg Obesity 917935602 E66.9 we discussed the new weight loss medication s. [id number] Soo Mendoza MD [facility] [address] [place] [id number] 5 03/22/2023 14:11:32 03/23/2023 22:16:06 Medication side effects present 972816360 T50.905A semaglutid e for weight loss gave her severe GI symptoms. I advised she stick to the low dose. if symptoms return she may need to d/c the med. she got the med in [place]. [id number] Soo Mendoza MD [facility] [address] [place] [id number] 5 12/16/2023 14:34:05 12/22/2023 08:16:49 Mixed anxiety and depressive disorder 179127065 F41.8 Significan t depressive episode. The patient's drove her here today but was waiting outside in the car with the children. With her permission I spoke with him. He agreed to remove any guns from the home until she is feeling better. I warned him that should she have any worsening or significan t suicidal ideation she would need to report to the ER. We will keep her on the 20 mg of Lexapro that she just started last night. We will also add Wellbutrin in the mornings. Patient is to follow-up in 2 weeks or sooner if necessary. Acute left otitis media 091368501 H66.92 Started hurting last night [id number] Soo Mendoza MD [facility] [address] [place] [address] [id number] 5 12/30/2023 13:58:39 12/30/2023 16:00:46 Mixed anxiety and depressive disorder 404004103 F41.8 Doing much better. Continue both the Lexapro and bupropion and recheck in 1 month. 12/30/2023 [id number] Molina Tang MD [facility] [address] [place] [address] [id number] 5 03/24/2024 10:55:03 04/17/2024 12:23:13 Active or passive immunization 636282261 Z23 Adult heal th examination 667131672 Z00.00 [id number] Soo Mendoza MD [facility] [address] [place] [address] [id number] 5 04/18/2024 11:47:51 04/18/2024 13:05:52 Mixed anxiety and depressive disorder 198290977 F41.8 Premenstru al dysphoric disorder 513805 F32.81 With severe emotional features.Ofe jain discussed possibly starting a monophasic control pill. She has been on a triphasic pill in the past and did not do well with it. We will first try adjusting her Wellbutrin by increasing it to twice daily. Another considerat ion would be changing from escitalopr am to fluoxetine ... And/or adding a mood stabilizer . We will reevaluate in 1 month after increasing Wellbutrin . [id number] Soo Mendoza MD [facility] [address] [place] [address] [id number] 5 05/18/2024 16:31:39 05/21/2024 08:10:18 Mixed anxiety and depressive disorder 188111511 F41.8 taking both in the morning at the same time.had one period since then and it went well. Continue same. Follow-up in 4 months. 05/18/2024 [id number] Soo Mendoza MD [facility] [address] [place] [address] [id number] 5 07/19/2024 14:20:46 07/20/2024 06:56:44 test positive 551248895 Z32.01 home tests positive. on a . stopped her buproprion - we discussed restarting if necessary but she may trial being off it for the first trimester. I reviewed what to avoid in and the plan of care. [id number] Soo Mendoza MD [facility] [address] [place] [address] [id number] 5 08/07/2024 09:39:56 08/08/2024 10:54:08 Normal in multigravida 9941648860 63288 Z34.80 [id number] Soo Mendoza MD [facility] [address] [place] [address] [id number] 5 08/15/2024 11:04:49 08/16/2024 09:29:24 Normal in multigravida 8420016513 88361 Z34.80 [id number] Soo Mendoza MD [facility] [address] [place] [id number] 5 08/15/2024 11:58:37 08/15/2024 14:51:03 Incomplete miscarriage 899072773 O03.4 Patient definitive ly diagnosed with miscarriag e today. Aidan cai her is out of state. Her mother is at home. The patient is understand ably upset and not in any condition to discuss treatment options. We will call to check on her tomorrow. When she is ready we can consider treatment options and moving forward. 08/15/2024 [id number] Soo Mendoza MD [facility] [address] [place] [address] [id number] 5 08/21/2024 12:00:41 08/21/2024 13:46:39 Miscarriage 98558453 O03.9 I discussed the risk benefits and alternativ es of watchful waiting, medication induced, or D&C with the patient and her spouse. I answered any questions they had. I discussed what to expect. Patient plans on taking the medication tonight. We will check on her tomorrow. [id number] Soo Mendoza MD [facility] [address] [place] [address] [id number] 5 08/31/2024 16:13:29 09/04/2024 09:36:25 Miscarriage 59405353 O03.9 Patient was advised to follow-up if she has not had a period within the next 6 to 8 weeks. 08/31/2024 [id number] Soo Mendoza MD [facility] [address] [place] [address] [id number] 5 10/12/2024 11:37:03 10/12/2024 13:46:29 Miscarriage 66294944 O03.9 [id number] Soo Mendoza MD [facility] [address] [place] [address] [id number] 5 10/12/2024 14:43:43 10/13/2024 10:41:33 Miscarriage 30623862 O03.9 [id number] Soo Mendoza MD [facility] [address] [place] [address] [id number] 5 10/17/2024 14:36:08 10/17/2024 15:52:37 Incomplete miscarriage 888089739 O03.4 Patient definitive ly diagnosed with miscarriag e today. Aidan cai her is out of state. Her mother is at home. The patient is understand ably upset and not in any condition to discuss treatment options. We will call to check on her tomorrow. When she is ready we can consider treatment options and moving forward. 08/15/2024 [id number] Soo Mendoza MD [facility] [address] [place] [address] [id number] 5 10/17/2024 15:29:00 10/17/2024 16:45:14 Incomplete miscarriage 291659513 O03.4 after two courses of misoprosti l pt still has a small amount of retained POC - verified on u/s today. she is scheduled for D&C tomorrow am. pre-op orders given. risks/bene fits/alter natives discussed with the pt. Health Concerns Section Related Observation LastModified by Organization Detai ls LastModified Time None Recorded Concern Status LastModified by Organization Details LastModified Time None Recorded Advance Directives Directive None Recorded Payers Insurance Date Sequence Insurance Name Policy Number Policy Nash Covered Member ID Nash Member ID Guarantor Name 04/10/2024 2 [employer] [place] (MEDICA[place]PLACEMENT - [place]MO) [id number] Phoebe Farley [id number] Phoebe Farley 04/10/2024 1 [employer] (PPO) [id number] Phoebe Farley [id number] Phoebe Farley 12/30/2023 2 *SELF PAY* As nini Farley 04/10/2024 [place] [id number] Phoebe Farley [id number] Phoebe Farley 08/08/2024 [place] [facility] (INSTITUTIONAL ) [id number] Phoebe Farley [id number] Phoebe Farley 10/17/2024 1 [place] [id number] Phoebe Farley [id number] Phoebe Farley Notes Date Note Type Note Provider Name and Address Organization Details Recorded Time 08/31/2024 text/html bleeding some of f and on, today getting brown.no cramping, this weekmood seems ok for this stressful time of year Soo Mendoza MD [address] [place] [address], [phone], [facility] 08/31/2024 17:09:39 10/12/2024 text/html Abnormal BleedingReported bypatient.Duration:neymar ly Quality:spotting; light; passing clots; heavy; red; brown Associated Symptoms:no pelvic pain; no fatigue;abdominal pain today it is light tinge2 week scotty tapered off then picks up again and is heavy for several dayshas happened several times Soo Mendoza MD [address] [place] [address], [phone], [facility] 10/12/2024 16:01:51 10/17/2024 text/html took the medicin e and she has had bleeding, no clots, not really any cramping. no fever/chills, no abdominal pain Soo Mendoza MD [address] [place] [address], [phone], [facility] 10/17/2024 16:04:21 OBGyn Episode Ob Episode Information Episode Created Date Number of Fetuses Patient Bloodtype Patient rh Status Prepregnancy Weight lbs Domestic Partner Domestic Partner Phone Father Name Slitting Machine Feeder Status 07/20/19 25 1 Tenzin Farley CLOSED [...] Weight in lbs Pre/Post Dialysis Refused Weight 188.260485642992 BP Diastolic BP Location Tested BP Systolic [...] At Estimated Date of Delivery false Thalassemia (Greek, Frisian, Mediterranean, Or Background): MCV < 80 false Neural Tube Defect (Meningom yelocele, Spina Bifida, Or Anencephaly) false Congenital Heart Defect false Down Syndrome false Yehuda-Sachs (eg, Oriental Orthodox, Cajun, Hebrew-Luxembourger) f alse Ezequiel Disease false Sickle Cell Disease Or Trait () false Hemophilia Or Other Blood Disorders false Muscular Dystrophy false Cystic Fibrosis false Javier's Chorea false Intellectual Disability/Autism false If Yes, [...] Method Maternal HG B and HCT Levels Ob Episode Information Episode Created Date Number of Fetuses Patient Bloodtype Patient rh Status Prepregnancy Weight lbs Domestic Partner Domestic Partner Phone Father Name Slitting Machine Feeder Status 07/20/19 25 1 CLOSED Fetus Data First Name Last Name Admitted to NICU Weight (g) Sex Living Outcome Pediatric Complications Fetus ID Race Codes Race Delivery Type 3401.94 F Full Term 7803 VAGINAL Mikey Calculation Initial Mikey Date Initial Exam Date Initial Exam Provider Initial Ultrasound Date Last Menstrual Period Date Ultra Sound Weeks Gestation 0 Eighteen To Twenty Week Mikey Update Ultra Sound Date Fundal Height At Umbil Quickening Date Ultra Sound Latest Weeks Gestation Final Mikey Confirmed By Final Mikey Confirmed Date Final Mikey Date Ultra Sound Latest Days Gestation 0 0 Menstrual History Last Menstrual Date Menses Monthly On Bcp Conception Prior Menses Frequency Hcg Plus Date Menarche Onset Age Delivery Information Delivery Date Delivery Type Labor Anesthesia Weeks Gestation Incision Type Labor Labor Length Hrs Delivered By Post Complications Tubal Sterilization Discharge Date Comments 0 37 Discharge Information Feeding Method Contraceptive Method Maternal HG B and HCT Levels Ob Episode Information Episode Created Date Number of Fetuses Patient Bloodtype Patient rh Status Prepregnancy Weight lbs Domestic Partner Domestic Partner Phone Father Name Slitting Machine Feeder Status 07/20/19 25 1 CLOSED Fetus Data First Name Last Name Admitted to NICU Weight (g) Sex Living Outcome Pediatric Complications Fetus ID Race Codes Race Delivery Type 3458.63 9 F Full Term 7804 VAGINAL Mikey Calculation Initial Mikey Date Initial Exam Date Initial Exam Provider Initial Ultrasound Date Last Menstrual Period Date Ultra Sound Weeks Gestation 0 Eighteen To Twenty Week Mikey Update Ultra Sound Date Fundal Height At Umbil Quickening Date Ultra Sound Latest Weeks Gestation Final Mikey Confirmed By Final Mikey Confirmed Date Final Mikey Date Ultra Sound Latest Days Gestation 0 0 Menstrual History Last Menstrual Date Menses Monthly On Bcp Conception Prior Menses Frequency Hcg Plus Date Menarche Onset Age Delivery Information Delivery Date Delivery Type Labor Anesthesia Weeks Gestation Incision Type Labor Labor Length Hrs Delivered By Post Complications Tubal Sterilization Discharge Date Comments 2 38 Discharge Information Feeding Method Contraceptive Method Maternal HG B and HCT Levels
[2024-10-18 10:41] VITALS: BP 132/98; PULSE 111; RESP 18; TEMP 37; O2SAT 94; BMI 29.0
[2024-10-18] MEDS: diphenhydrAMINE 50 mg/mL SDV 1mL IVP (10:47)
[2024-10-18] MEDS: methylPREDNISolone sod succ 125 mg/2 mL INJ IVP (10:49)
--- NOTE | 2024-10-18 10:51 | W.ED.GENADLT ---
HPI - General Adult General: Chief complaint: Nausea/Vomiting/Diarrhea Stated complaint: N / fingertip swelling Time Seen by Provider: 10/18/24 10:35 Source: patient Mode of arrival: ambulatory Limitations: no limitations History of Present Illness: 29-year-old female states she had a D&C this morning at 7 AM. States that shortly before arrival she started to have some swelling fingertip states she is having some pruritus as well and slight rash. States she is having some nausea headache and is concerned she may be having allergic reaction. She denies any shortness of breath denies any vomiting. Associated symptoms: Reports headache(s), nausea and rash; Deny chest pain, dyspnea or vomiting Related Data Home Medications ?Medication ?Instructions ?Recorded ?Confirmed escitalopram oxalate 20 mg tablet 20 mg PO DAILY 08/10/22 10/18/24 (Lexapro) bupropion HCl 150 mg tablet,12 hr 300 mg PO DAILY 10/17/24 10/18/24 sustained-release Previous Rx's ?Medication ?Instructions ?Recorded ondansetron 4 mg disintegrating 4 mg PO Q6H PRN nausea and 10/18/24 tablet vomiting #14 tabs Allergies Allergy/AdvReac Type Severity Reaction Status Date / Time No Known Allergies Allergy Verified 10/18/24 06:11 Review of Systems Const: Denies: fever(s), chills, body aches or change in appetite ENMT: Denies: throat pain or dental pain Card: Denies: chest pain Resp: Denies: dyspnea GI: Reports: nausea; Denies: abdominal pain, vomiting or diarrhea Musc: Denies: neck pain or back pain Skin/Breast: Reports: rash Neuro: Reports: headache(s) PFSH ED PFSH: Social History Smoking and tobacco/nicotine status: never used tobacco/nicotine Second hand smoke exposure: No Alcohol intake: never Substance/Drug Use: never Adopted: No Caregiver/support person: Yes Lives independently: Yes Household members: spouse and children Housing: House Marital status: Number of children: 2 Highest education level completed: Bachelor's Degree Education level details: education service: No Current occupational status: employed Current occupation: [employer] Pets and animals: Yes Current gender identity: Female Physical Exam Const: COMMON NORMALS: no acute distress, patient oriented x3 and healthy appearing HENMT: COMMON NORMALS: normocephalic and atraumatic HEAD & SCALP: normocephalic and atraumatic Eye: COMMON NORMALS: conjunctivae normal CONJUNCTIVA: Yes conjunctivae normal Neck/C-Spine: COMMON NORMALS: full ROM and supple Chest: COMMONS NORMALS: normal inspection of the chest Resp: COMMON NORMALS: normal respiratory effort, No retractions, No use of accessory muscles and clear to auscultation bilaterally AUSCULTATION: clear to auscultation bilaterally Cardio: COMMON NORMALS: regular rate, regular rhythm and No murmurs present (Cardio) RATE: regular rate RHYTHM: regular rhythm Extremity: COMMON NORMALS: normal to inspection and full ROM Neuro: COMMON NORMALS: patient oriented x3, moves all extremities and no focal motor deficits Psych: COMMON NORMALS: mental status grossly normal, Normal thought process present and cooperative THOUGHT PROCESS: Normal thought process present Skin: COMMON NORMALS: no rashes or lesions noted and no wounds GENERAL SKIN EXAM: no rashes or lesions noted Course Vital Signs: Vital signs: Vital Signs Temperature 98.6 F 10/18/24 10:41 Pulse Rate 111 H 10/18/24 10:41 Respiratory Rate 18 10/18/24 10:41 Blood Pressure 132/98 10/18/24 10:41 Pulse Oximetry 94 10/18/24 10:41 Oxygen Delivery Me thod Room Air 10/18/24 10:41 MDM - General Adult Medical Decision Making Patient presents with nausea likely allergic reaction as well she feels much improved after meds she is stable for discharge she is follow-up with PCP and return if worsening she understands agrees to plan. Medical Records I reviewed the patient's medical records. No radiology studies performed this visit Discharge Plan Discharge Patient Disposition: Home Clinical Impression: Allergic reaction, Nausea Condition: Stable Prescriptions: New ondansetron 4 mg tablet,disintegrating 4 mg PO Q6H PRN (Reason: nausea and vomiting) Qty: 14 0RF No Action escitalopram oxalate [Lexapro] 20 mg tablet 20 mg PO DAILY bupropion HCl 150 mg tablet sustained-release 12 hr 300 mg PO DAILY Discharge Orders: Discharge ED (Routine); Ordered 10/18/24 Ordered By: Lorin Ramirez Referrals: Mendoza,Soo Anisha, MD [Primary Care Provider, Family Practice] - 4-7 days Discharge Diet: Advance as tolerated Discharge Activity: Resume usual activity Patient Instructions: Opioid Safety, Pain Management, Patient Portal & Charlene Instructions Print Language: Bulgarian Coding Level of Care Code ED Desulfurizer Machine for Vivian Gutierrez
[2024-10-18] MEDS: ondansetron 2 mg/ML SDV 2 mL 4 MG IVP (10:55)
[2024-10-18 11:00] VITALS: BP 113/74; PULSE 93; RESP 16; O2SAT 95
[2024-10-18 11:50] VITALS: BP 116/80; PULSE 101; O2SAT 95
== END 2024-10-18 11:52 | disposition home or self-care (01) ==
PROVIDERS: Emergency Provider Emergency Medicine; PCP Family Medicine
DX: T78.40XA Allergy, unspecified, initial encounter (principal); X58.XXXA Exposure to other specified factors, initial encounter; R11.0 Nausea
CPT/HCPCS: 96374; 96375; 99284; J1200; J2405; J2919; J3490